=== PATIENT | male | born 1955 | race Caucasian/White ===

== ENCOUNTER → 2018-10-05 12:59 | Outpatient (CLI) | payer BC, SELFPAY ==
--- NOTE | 2018-10-05 13:01 | DI.RAD.S_ITS ---
PROCEDURE: XR LUMBAR SPINE MIN 4V INDICATIONS: low back pain TECHNIQUE: 5 views of the lumbar spine were acquired. COMPARISON: None. FINDINGS: Bones: No fracture or focal osseous destruction. Diffuse facet arthropathy primarily from L4-S1. There is no definite disc space narrowing. Endplate spurring is present. Soft tissues: Overlying bowel gas pattern is normal. No suspicious soft tissue calcifications. Oblique images: No pars defects. IMPRESSION: Mild diffuse lumbar degenerative spurring. Lower lumbar facet arthropathy. Dictated by: Matthew Alvarez M.D. on 10/05/2018 at 15:14 Approved by: Matthew Alvarez M.D. on 10/05/2018 at 15:16
== END ==
PROVIDERS: PCP Student in an Organized Health Care Education/Training Program; Visit Provider Internal Medicine
DX: M54.5 Low back pain (principal); M47.816 Spondylosis without myelopathy or radiculopathy, lumbar region; M46.06 Spinal enthesopathy, lumbar region
CPT/HCPCS: 72110

== ENCOUNTER → 2018-11-13 11:06 | Outpatient (CLI) | payer BC, SELFPAY ==
[2018-11-13 12:05] LABS: Add Manual Diff / Slide Review NO; Basophils Percent Auto 0.5 % (0-2); Eosinophils Percent Auto 3.2 % (2-4); Hematocrit 44.1 % (41-53); Hemoglobin 15.1 g/dL (13.5-17.5); Lymphocytes Percent Auto 28.7 % (25-40); Mean Corpuscular HGB Conc 34.3 % (30-36); Mean Corpuscular Hemoglobin 33.9 PG (26-34); Mean Corpuscular Volume 98.7 fL (80-100); Monocytes Percent Auto 11.7 % (3-14); Neutrophils Absolute Auto 3500 /uL (1500-7000); Neutrophils Percent Auto 55.9 % (50-75); Platelet Count 239 X10^3/uL (150-400); Red Blood Cell Count 4.46 X10^6/uL (4.5-5.9); White Blood Cell Count 6.3 X10^3/uL (4.5-11.0)
[2018-11-13 12:20] LABS: BUN Creatinine Ratio 22.2 (6-22); Blood Urea Nitrogen 20 mg/dL (9-20); Calcium 9.5 mg/dL (8.4-10.2); Carbon Dioxide 26 mmol/L (22-32); Chloride 105 mmol/L (98-107); Cholesterol 189 mg/dL (140-199); Estimated Glomerular Filt Rate > 60.0 mL/min (>60); Glucose 96 mg/dL (80-110); HDL Cholesterol 63 mg/dL (40-60); HEMOLYSIS < 15 (0-50); LDL Cholesterol Calculated 113 mg/dL (<100); Sodium 143 mmol/L (137-145); Triglycerides 64 mg/dL (35-150)
[2018-11-13 12:35] LABS: Vitamin D 25 Hydroxy (D3) 61.9 ng/mL (30.0-100.0)
[2018-11-13 12:49] LABS: Prostate Specific Antigen Scrn 1.09 ng/mL (0.1-4.0)
== END ==
PROVIDERS: PCP Student in an Organized Health Care Education/Training Program; Visit Provider Student in an Organized Health Care Education/Training Program
DX: E55.9 Vitamin D deficiency, unspecified (principal); T39.395A Adverse effect of other nonsteroidal anti-inflammatory drugs [NSAID], initial encounter; Z85.528 Personal history of other malignant neoplasm of kidney; Z12.5 Encounter for screening for malignant neoplasm of prostate; Z13.220 Encounter for screening for lipoid disorders
CPT/HCPCS: 36415; 80048; 80061; 82306; 85025; G0103

== ENCOUNTER 2018-11-16 15:15 | Outpatient (RCR) | payer BC, SELFPAY ==
--- NOTE | 2018-11-02 17:58 | PT.OIE ---
Current Diagnoses Sacrococcygeal disorders, not elsewhere classified (11/02/18) Low back pain (11/02/18) Muscle weakness (generalized) (11/02/18) Provider Visit Care Team Role Provider Type Terry Sy MD Family Provider Physician Primary Care Provider Specialty: Internal Medicine Address: [address] [place] [address] Email: PETER Pavon Attending Provider Advanced Returned Goods Sorter Specialty: Family Practice Address: [address] [place] [address], [id number] Email: [email or web address] Physical Therapy Initial Evaluation PT-OP-A Visit Information Start: 11/02/18 17:32 Freq: Status: Active Protocol: Document 11/02/18 15:15 DCW (Rec: 11/02/18 17:58 DCW [id number]) Out-Patient Physical Therapy Visit Information Visit Information Visit Type Initial Evaluation Visit Start Time 15:15 Visit Stop Time 16:00 Total Visit Minutes 45 Visit Number 1 Number of SUPERVISOR [employer] Visits 0 Evaluation Information Evaluation Date 11/02/18 PT-OP-B Current Condition Start: 11/02/18 17:32 Freq: Status: Active Protocol: Document 11/02/18 15:15 DCW (Rec: 11/02/18 17:58 DCW [id number]) Current Condition History of Current Condition Onset Date Five years Current Complaints Occasional episodes of low back pain History of Current Condition Pt is a 63 year old male presenting with complaints of at least a five year history of occasional episodes of low back pain, which seem to occur with no instigating event, and last for 24 hours, before everything pretty much goes back to normal. 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 Due to the increased severity, pt scheduled an appointment with his physician, and was referred to physical therapy. Pt was given a 5-day course of steroids, which seemed to help, and pt is currently feeling relatively normal at the moment. Pt does note some increased pain when trying to roll in bed. Treatment Goals Patient/Caregiver Goals Pt would like to stop getting these random episodes of back pain. 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 PT-OP-C Subjective Start: 11/02/18 17:32 Freq: Status: Active Protocol: Document 11/02/18 15:15 DCW (Rec: 11/02/18 17:58 DCW [id number]) OP-PT Subjective Patient Comments Patient Reported Progress Improving OP-PT Pain Assessment Pain Assessment Grid Paper Pain Assessment Grid Completed Yes Location Bilateral Lower Back Intensity 6 Scale Used Numeric (1 - 10) Frequency Occasional PT-OP-F Manual Assessment Start: 11/02/18 17:32 Freq: Status: Active Protocol: Document 11/02/18 15:15 DCW (Rec: 11/02/18 17:58 DCW [id number]) Manual Assessments Soft Tissue Assessment Soft Tissue Mobility Assessment No notable soft tissue tone or tenderness Joint Mobility Assessment Joint Mobility Assessment No reports of pain with palpation of L1-5. Increased pain and symptoms with pressure on bilateral SI, L>R SI Hypermobility with P->A mobilization PT-OP-K Range of Motion Start: 11/02/18 17:32 Freq: Status: Active Protocol: Document 11/02/18 15:15 DCW (Rec: 11/02/18 17:58 DCW [id number]) Lumbar Spine Range of Motion Lumbar Spine Active Degrees Testing Position Standing Flexion 42 Extension 23 ROM Limitations Bony Restriction Comments Rotation and Lateral flexion WNL, mild pain with flexion PT-OP-L Special Tests Start: 11/02/18 17:32 Freq: Status: Active Protocol: Document 11/02/18 15:15 DCW (Rec: 11/02/18 17:58 DCW [id number]) Special Tests Lumbar Spine Special Tests Lateral SI compression Test Results Decreased pain Comments Prone bilateral compression ISABEL Test Results Positive Left Straight Leg Raise Test Results Negative Prone Press Up Test Results Negative Slump Test Results Negative Compression Test Results Negative PT-OP-M Strength Start: 11/02/18 17:32 Freq: Status: Active Protocol: Document 11/02/18 15:15 DCW (Rec: 11/02/18 17:58 DCW [id number]) Trunk Strength Trunk Manual Muscle Testing Core Stabilization Immediate loss of posterior pelvic tilt and core contraction with double SLR, 4 /5 Hip Strength Hip Manual Muscle Testing Right Flexion (L2) 5 Normal Extension (S1) 5 Normal Abduction 5 Normal Adduction 5 Normal External Rotation 4+ Good+ Internal Rotation 4+ Good+ Left Flexion (L2) 5 Normal Extension (S1) 5 Normal Abduction 5 Normal Adduction 5 Normal External Rotation 4+ Good+ Internal Rotation 4+ Good+ Knee Strength Knee Manual Muscle Testing Right Flexion (S2) 5 Normal Extension (L3) 5 Normal Left Flexion (S2) 5 Normal Extension (L3) 5 Normal PT-OP-Q Treatments Start: 11/02/18 17:32 Freq: Status: Active Protocol: Document 11/02/18 15:15 DCW (Rec: 11/02/18 17:58 [facility] [id number]) Therapeutic Exercises Supine Exercises PPT /c TrA activation - Air Bicycle Supine Exercise Name PPT /c TrA activation - Air Bicycle PPT /c TrA activation - Alternating SLR Supine Exercise Name PPT /c TrA activation - Alternating SLR Comments 5 hold Sidelying Exercises Reverse Clamshell Sidelying Exercise Name Reverse Clamshell Side bilateral Clamshell Sidelying Exercise Name Clamshell Side bilateral PT-OP-T Assessment and Plan Start: 11/02/18 17:32 Freq: Status: Active Protocol: Document 11/02/18 15:15 DCW (Rec: 11/02/18 17:58 [facility] [id number]) Physical Therapy Assessment Rehab Potential Rehabilitation Potential Good Evaluation Complexity Number of Personal Factors/Comorbidities 0 Number of Body Systems Impaired 1-2 Clinical Presentation at Evaluation Unstable Impairments Impairments Pain ROM Strength Other Impairments SI hypermobility Other Concerns Fall Risk No Barriers to Rehabilitation Infrequency of symptoms Goals Four Impairment Core weakness Short Term Goal (STG) Core MMT to 5/5 STG Duration 12/03/18 Three Impairment Special Tests Tipping Machine Operator Automatic Goal (LTG) ISABEL negative LTG Duration 01/03/19 Two Impairment Work limitation Tipping Machine Operator Automatic Goal (LTG) Pt to not miss work due to back-related pain over a period of one month LTG Duration 01/03/19 One Impairment Pt does not have an appropriate home exercise program Short Term Goal (STG) Pt to be independent and complaint with an appropriate HEP STG Duration 12/03/18 Assessment Summary Assessment Pt presents with signs and symptoms consistent with SI hypermobility and inflammation . Pt does not have any indications at this time of soft tissue injury, however pain is reproduced with pressure at his SI bilaterally , as well as decreased pain with manual SI stabilization. Additionally, pt displays mild core weakness, which may lead to overuse of his back and hips when performing his job. Pt should benefit from skilled therapy focusing on improving stability of the SI joint and improving core and hip rotator strength. If strengthening fails, pt may benefit from an SI belt, however therapist would prefer at this time to limit pt reliance on a belt if able. Physical Therapy Plan Frequency and Duration Frequency of Treatment 2x/Week Duration of Treatment 10 weeks Plan of Care Start Date 11/02/18 Plan of Care End Date 01/11/19 Therapeutic Interventions Therapeutic Interventions Aquatic Therapy Home Exercise Program Joint Mobilizations Manual Therapy Patient/Caregiver Education Self-Care/Home Management Therapeutic Activities Therapeutic Exercises Modalities Cold Pack/Ice Massage Electric Stimulation Hot Packs Ultrasound Next Visit Focus/Plan Next Note Type Treatment Note Next Visit Plan Hip and core strengthening, manual therapy
--- NOTE | 2018-11-02 17:59 | PT.OPPOC ---
Current Diagnoses Sacrococcygeal disorders, not elsewhere classified (11/02/18) Low back pain (11/02/18) Muscle weakness (generalized) (11/02/18) Provider Visit Care Team Role Provider Type Terry Sy MD Family Provider Physician Primary Care Provider Specialty: Internal Medicine Address: [address] [place] [address] Email: PETER Pavon Attending Provider Advanced Underwriter Specialty: Family Practice Address: [address] [place] [address], [facility] Email: [email or web address] Plan Of Care PT-OP-T Assessment and Plan Start: 11/02/18 17:32 Freq: Status: Active Protocol: Document 11/02/18 15:15 DCW (Rec: 11/02/18 17:58 DCW [id number]) Physical Therapy Assessment Rehab Potential Rehabilitation Potential Good Evaluation Complexity Number of Personal Factors/Comorbidities 0 Number of Body Systems Impaired 1-2 Clinical Presentation at Evaluation Unstable Impairments Impairments Pain ROM Strength Other Impairments SI hypermobility Other Concerns Fall Risk No Barriers to Rehabilitation Infrequency of symptoms Goals Four Impairment Core weakness Short Term Goal (STG) Core MMT to 5/5 STG Duration 12/03/18 Three Impairment Special Tests Patient Care Coordinator Goal (LTG) ISABEL negative LTG Duration 01/03/19 Two Impairment Work limitation Patient Care Coordinator Goal (LTG) Pt to not miss work due to back-related pain over a period of one month LTG Duration 01/03/19 One Impairment Pt does not have an appropriate home exercise program Short Term Goal (STG) Pt to be independent and complaint with an appropriate HEP STG Duration 12/03/18 Assessment Summary Assessment Pt presents with signs and symptoms consistent with SI hypermobility and inflammation . Pt does not have any indications at this time of soft tissue injury, however pain is reproduced with pressure at his SI bilaterally , as well as decreased pain with manual SI stabilization. Additionally, pt displays mild core weakness, which may lead to overuse of his back and hips when performing his job. Pt should benefit from skilled therapy focusing on improving stability of the SI joint and improving core and hip rotator strength. If strengthening fails, pt may benefit from an SI belt, however therapist would prefer at this time to limit pt reliance on a belt if able. Physical Therapy Plan Frequency and Duration Frequency of Treatment 2x/Week Duration of Treatment 10 weeks Plan of Care Start Date 11/02/18 Plan of Care End Date 01/11/19 Therapeutic Interventions Therapeutic Interventions Aquatic Therapy Home Exercise Program Joint Mobilizations Manual Therapy Patient/Caregiver Education Self-Care/Home Management Therapeutic Activities Therapeutic Exercises Modalities Cold Pack/Ice Massage Electric Stimulation Hot Packs Ultrasound Next Visit Focus/Plan Next Note Type Treatment Note Next Visit Plan Hip and core strengthening, manual therapy Plan of Care Dates Plan of Care Start Date 11/02/18 Plan of Care End Date 01/11/19 Please Sign and Return: I have reviewed this Plan of Care and certify that the skilled therapy services above are required to meet the patient?s needs. Physician Signature Date Printed Name and Credentials Clinical Instructor Signature Printed Name and Credentials
--- NOTE | 2018-11-06 16:45 | PT.OTN ---
Current Diagnoses Low back pain (11/06/18) Physical Therapy Treatment Note PT-OP-A Visit Information Start: 11/02/18 17:32 Freq: Status: Active Protocol: Document 11/06/18 16:45 RCC (Rec: 11/06/18 17:06 RCC [id number]) Out-Patient Physical Therapy Visit Information Visit Information Visit Type Treatment Note Visit Start Time 16:02 Visit Stop Time 16:45 Total Visit Minutes 43 Visit Number 2 Number of MECHANICAL HANDYMAN Visits 0 Evaluation Information Evaluation Date 11/02/18 PT-OP-B Current Condition Start: 11/02/18 17:32 Freq: Status: Active Protocol: Document 11/02/18 15:15 DCW (Rec: 11/02/18 17:58 DCW [id number]) Current Condition History of Current Condition Onset Date Five years Current Complaints Occasional episodes of low back pain History of Current Condition Pt is a 63 year old male presenting with complaints of at least a five year history of occasional episodes of low back pain, which seem to occur with no instigating event, and last for 24 hours, before everything pretty much goes back to normal. 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 Due to the increased severity, pt scheduled an appointment with his physician, and was referred to physical therapy. Pt was given a 5-day course of steroids, which seemed to help, and pt is currently feeling relatively normal at the moment. Pt does note some increased pain when trying to roll in bed. Treatment Goals Patient/Caregiver Goals Pt would like to stop getting these random episodes of back pain. 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 PT-OP-C Subjective Start: 11/02/18 17:32 Freq: Status: Active Protocol: Document 11/06/18 16:45 RCC (Rec: 11/06/18 17:06 RCC [email or web address]) OP-PT Subjective Patient Comments Patient Comments Pt has noticed that he was not engaging his core at all at work, and was surprised about how tiring it could be engaging your core the entire shift. PT-OP-F Manual Assessment Start: 11/02/18 17:32 Freq: Status: Active Protocol: Document 11/02/18 15:15 DCW (Rec: 11/02/18 17:58 DCW [id number]) Manual Assessments Soft Tissue Assessment Soft Tissue Mobility Assessment No notable soft tissue tone or tenderness Joint Mobility Assessment Joint Mobility Assessment No reports of pain with palpation of L1-5. Increased pain and symptoms with pressure on bilateral SI, L>R SI Hypermobility with P->A mobilization PT-OP-K Range of Motion Start: 11/02/18 17:32 Freq: Status: Active Protocol: Document 11/02/18 15:15 DCW (Rec: 11/02/18 17:58 DCW [id number]) Lumbar Spine Range of Motion Lumbar Spine Active Degrees Testing Position Standing Flexion 42 Extension 23 ROM Limitations Bony Restriction Comments Rotation and Lateral flexion WNL, mild pain with flexion PT-OP-L Special Tests Start: 11/02/18 17:32 Freq: Status: Active Protocol: Document 11/02/18 15:15 DCW (Rec: 11/02/18 17:58 DCW [id number]) Special Tests Lumbar Spine Special Tests Lateral SI compression Test Results Decreased pain Comments Prone bilateral compression ISABEL Test Results Positive Left Straight Leg Raise Test Results Negative Prone Press Up Test Results Negative Slump Test Results Negative Compression Test Results Negative PT-OP-M Strength Start: 11/02/18 17:32 Freq: Status: Active Protocol: Document 11/02/18 15:15 DCW (Rec: 11/02/18 17:58 DCW [id number]) Trunk Strength Trunk Manual Muscle Testing Core Stabilization Immediate loss of posterior pelvic tilt and core contraction with double SLR, 4 /5 Hip Strength Hip Manual Muscle Testing Right Flexion (L2) 5 Normal Extension (S1) 5 Normal Abduction 5 Normal Adduction 5 Normal External Rotation 4+ Good+ Internal Rotation 4+ Good+ Left Flexion (L2) 5 Normal Extension (S1) 5 Normal Abduction 5 Normal Adduction 5 Normal External Rotation 4+ Good+ Internal Rotation 4+ Good+ Knee Strength Knee Manual Muscle Testing Right Flexion (S2) 5 Normal Extension (L3) 5 Normal Left Flexion (S2) 5 Normal Extension (L3) 5 Normal PT-OP-Q Treatments Start: 11/02/18 17:32 Freq: Status: Active Protocol: Document 11/06/18 16:45 RCC (Rec: 11/06/18 17:06 RCC [id number]) Therapeutic Exercises Supine Exercises TrA activation Side bilateral Reps/Minutes 10 with 5 sec hold Comments tactile cuing Prone Exercises hip extension Prone Exercise Name hip extension Side bilateral Reps/Minutes 10 each Other Exercises Quadruped alt. LE lift Other Exercise Name quadruped alternating LE lift Side bilateral Reps/Minutes 10 each Therapeutic Activity Therapeutic Activity body mechanics- lifting Name body mechanics- discussion, demonstration, pt performed with supervision Reps/Minutes 26 min Comments lifting techniques ground<-> waist, turning while lifting objects, lifting waist to overhead; also discussed and performed pt's warm up prior to working- discussed dynamic vs. static stretching Manual Therapy Treatment Manual Techniques MET Type to correct R posterior ilial rotation PT-OP-T Assessment and Plan Start: 11/02/18 17:32 Freq: Status: Active Protocol: Document 11/06/18 16:45 [facility] (Rec: 11/06/18 17:06 [facility] [id number]) Physical Therapy Assessment Assessment Summary Assessment Pt required increased time to discuss, be educated on, demonstrate, and to perform transverse abdominal activation, posterior pelvic tilting with lifting techniques, as well as different conditions including floor<->waist, waist<->waist level, waist<->above shoulder level lifting. Pt had a good grasp of reasoning for and how to engage the transverse abdominal for work and every day related tasks by the end of session. Physical Therapy Plan Frequency and Duration Frequency of Treatment 2x/Week Duration of Treatment 10 weeks Plan of Care Start Date 11/02/18 Plan of Care End Date 01/11/19 Next Visit Focus/Plan Next Note Type Treatment Note Next Visit Plan continue to advance core stability with HEP, assess tolerance and understanding from this session.
--- NOTE | 2018-11-09 15:52 | PT.OTN ---
Current Diagnoses Low back pain (11/09/18) Physical Therapy Treatment Note PT-OP-A Visit Information Start: 11/02/18 17:32 Freq: Status: Active Protocol: Document 11/09/18 15:15 DCW (Rec: 11/09/18 15:52 DCW [id number]) Out-Patient Physical Therapy Visit Information Visit Information Visit Type Treatment Note Visit Note Pt requested ending appointment 15 minutes early due to conflicting appointment times. Visit Start Time 15:15 Visit Stop Time 15:45 Total Visit Minutes 30 Visit Number 3 Number of INTERNAL MEDICINE PHYSICIAN Visits 0 Evaluation Information Evaluation Date 11/02/18 PT-OP-B Current Condition Start: 11/02/18 17:32 Freq: Status: Active Protocol: Document 11/02/18 15:15 DCW (Rec: 11/02/18 17:58 DCW [id number]) Current Condition History of Current Condition Onset Date Five years Current Complaints Occasional episodes of low back pain History of Current Condition Pt is a 63 year old male presenting with complaints of at least a five year history of occasional episodes of low back pain, which seem to occur with no instigating event, and last for 24 hours, before everything pretty much goes back to normal. 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 Due to the increased severity, pt scheduled an appointment with his physician, and was referred to physical therapy. Pt was given a 5-day course of steroids, which seemed to help, and pt is currently feeling relatively normal at the moment. Pt does note some increased pain when trying to roll in bed. Treatment Goals Patient/Caregiver Goals Pt would like to stop getting these random episodes of back pain. 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 PT-OP-C Subjective Start: 11/02/18 17:32 Freq: Status: Active Protocol: Document 11/09/18 15:15 DCW (Rec: 11/09/18 15:52 DCW [id number]) OP-PT Subjective Patient Comments Patient Comments Pt reports he has still been doing well back at work, but noticing stiffness when first getting up in the morning. Notes that is takes 5-10 minutes to really get it worked out. PT-OP-F Manual Assessment Start: 11/02/18 17:32 Freq: Status: Active Protocol: Document 11/02/18 15:15 DCW (Rec: 11/02/18 17:58 DCW [id number]) Manual Assessments Soft Tissue Assessment Soft Tissue Mobility Assessment No notable soft tissue tone or tenderness Joint Mobility Assessment Joint Mobility Assessment No reports of pain with palpation of L1-5. Increased pain and symptoms with pressure on bilateral SI, L>R SI Hypermobility with P->A mobilization PT-OP-K Range of Motion Start: 11/02/18 17:32 Freq: Status: Active Protocol: Document 11/02/18 15:15 DCW (Rec: 11/02/18 17:58 DCW [id number]) Lumbar Spine Range of Motion Lumbar Spine Active Degrees Testing Position Standing Flexion 42 Extension 23 ROM Limitations Bony Restriction Comments Rotation and Lateral flexion WNL, mild pain with flexion PT-OP-L Special Tests Start: 11/02/18 17:32 Freq: Status: Active Protocol: Document 11/02/18 15:15 DCW (Rec: 11/02/18 17:58 DCW [id number]) Special Tests Lumbar Spine Special Tests Lateral SI compression Test Results Decreased pain Comments Prone bilateral compression ISABEL Test Results Positive Left Straight Leg Raise Test Results Negative Prone Press Up Test Results Negative Slump Test Results Negative Compression Test Results Negative PT-OP-M Strength Start: 11/02/18 17:32 Freq: Status: Active Protocol: Document 11/02/18 15:15 DCW (Rec: 11/02/18 17:58 DCW [id number]) Trunk Strength Trunk Manual Muscle Testing Core Stabilization Immediate loss of posterior pelvic tilt and core contraction with double SLR, 4 /5 Hip Strength Hip Manual Muscle Testing Right Flexion (L2) 5 Normal Extension (S1) 5 Normal Abduction 5 Normal Adduction 5 Normal External Rotation 4+ Good+ Internal Rotation 4+ Good+ Left Flexion (L2) 5 Normal Extension (S1) 5 Normal Abduction 5 Normal Adduction 5 Normal External Rotation 4+ Good+ Internal Rotation 4+ Good+ Knee Strength Knee Manual Muscle Testing Right Flexion (S2) 5 Normal Extension (L3) 5 Normal Left Flexion (S2) 5 Normal Extension (L3) 5 Normal PT-OP-Q Treatments Start: 11/02/18 17:32 Freq: Status: Active Protocol: Document 12/10/18 15:15 DCW (Rec: 11/09/18 15:52 DCW [id number]) Gym Equipment Shuttle Recovery Plyo Hopping Details Plyometric Hopping Resistance 75# Therapeutic Ball Bridging /c HS curls Exercise Details Bridging /c Hamstring Curls Ball Size/Color Red - 55 cm Body Position Supine T-ball Bridging Exercise Details Bridging /c feet on T-ball Ball Size/Color Red - 55 cm Body Position Supine Therapeutic Exercises Other Exercises Resisted Fwd/Retro Ambulation Other Exercise Name Resisted Fwd/Retro Ambulation Resistance Yellow Equipment Used T-band Resisted Side-stepping Other Exercise Name Resisted Side-stepping Resistance Yellow Equipment Used T-band Quadruped alt. LE lift Other Exercise Name quadruped alternating LE/UE lift Side bilateral Reps/Minutes 2x10 PT-OP-T Assessment and Plan Start: 11/02/18 17:32 Freq: Status: Active Protocol: Document 11/09/18 15:15 DCW (Rec: 11/09/18 15:52 DCW [id number]) Physical Therapy Assessment Impairments Impairments Pain ROM Strength Other Impairments SI hypermobility Goals Four Impairment Core weakness Short Term Goal (STG) Core MMT to 5/5 STG Duration 12/03/18 Three Impairment Special Tests [facility] Goal (LTG) ISABEL negative LTG Duration 01/03/19 Two Impairment Work limitation Press Officer Goal (LTG) Pt to not miss work due to back-related pain over a period of one month LTG Duration 01/03/19 One Impairment Pt does not have an appropriate home exercise program Short Term Goal (STG) Pt to be independent and complaint with an appropriate HEP STG Duration 12/03/18 Assessment Summary Assessment Pt appears to be better with core stabilization at work, reporting less pain even with increased work days due to holiday season hours. Physical Therapy Plan Frequency and Duration Frequency of Treatment 2x/Week Duration of Treatment 10 weeks Plan of Care Start Date 11/02/18 Plan of Care End Date 01/11/19 Therapeutic Interventions Therapeutic Interventions Aquatic Therapy Home Exercise Program Joint Mobilizations Manual Therapy Patient/Caregiver Education Self-Care/Home Management Therapeutic Activities Therapeutic Exercises Modalities Cold Pack/Ice Massage Electric Stimulation Hot Packs Ultrasound Next Visit Focus/Plan Next Note Type Treatment Note Next Visit Plan Hip and core strengthening, manual therapy
--- NOTE | 2018-11-12 17:30 | PT.OTN ---
Current Diagnoses Low back pain (11/12/18) Physical Therapy Treatment Note PT-OP-A Visit Information Start: 11/02/18 17:32 Freq: Status: Active Protocol: Document 11/12/18 17:30 RCC (Rec: 11/12/18 17:44 RCC [email or web address]) Out-Patient Physical Therapy Visit Information Visit Information Visit Type Treatment Note Visit Start Time 16:46 Visit Stop Time 17:30 Total Visit Minutes 44 Visit Number 4 Number of COMPOSITION BOARD PRESS OPERATOR Visits 0 Evaluation Information Evaluation Date 11/02/18 PT-OP-B Current Condition Start: 11/02/18 17:32 Freq: Status: Active Protocol: Document 11/02/18 15:15 DCW (Rec: 11/02/18 17:58 DCW [id number]) Current Condition History of Current Condition Onset Date Five years Current Complaints Occasional episodes of low back pain History of Current Condition Pt is a 63 year old male presenting with complaints of at least a five year history of occasional episodes of low back pain, which seem to occur with no instigating event, and last for 24 hours, before everything pretty much goes back to normal. 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 Due to the increased severity, pt scheduled an appointment with his physician, and was referred to physical therapy. Pt was given a 5-day course of steroids, which seemed to help, and pt is currently feeling relatively normal at the moment. Pt does note some increased pain when trying to roll in bed. Treatment Goals Patient/Caregiver Goals Pt would like to stop getting these random episodes of back pain. 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 PT-OP-C Subjective Start: 11/02/18 17:32 Freq: Status: Active Protocol: Document 11/12/18 17:30 RCC (Rec: 11/12/18 17:44 RCC [email or web address]) OP-PT Subjective Patient Comments Patient Comments Pt is doing his HEP and notes that he has not had that sharp type pain in a while, but still stiff in the a.m. PT-OP-F Manual Assessment Start: 11/02/18 17:32 Freq: Status: Active Protocol: Document 11/12/18 17:30 RCC (Rec: 11/12/18 17:44 RCC [email or web address]) Manual Assessments Other Manual Assessments Other Manual Assessments R SI joint hypomobility PT-OP-K Range of Motion Start: 11/02/18 17:32 Freq: Status: Active Protocol: Document 11/02/18 15:15 DCW (Rec: 11/02/18 17:58 DCW [id number]) Lumbar Spine Range of Motion Lumbar Spine Active Degrees Testing Position Standing Flexion 42 Extension 23 ROM Limitations Bony Restriction Comments Rotation and Lateral flexion WNL, mild pain with flexion PT-OP-L Special Tests Start: 11/02/18 17:32 Freq: Status: Active Protocol: Document 11/02/18 15:15 DCW (Rec: 11/02/18 17:58 DCW [id number]) Special Tests Lumbar Spine Special Tests Lateral SI compression Test Results Decreased pain Comments Prone bilateral compression ISABEL Test Results Positive Left Straight Leg Raise Test Results Negative Prone Press Up Test Results Negative Slump Test Results Negative Compression Test Results Negative PT-OP-M Strength Start: 11/02/18 17:32 Freq: Status: Active Protocol: Document 11/02/18 15:15 DCW (Rec: 11/02/18 17:58 DCW [id number]) Trunk Strength Trunk Manual Muscle Testing Core Stabilization Immediate loss of posterior pelvic tilt and core contraction with double SLR, 4 /5 Hip Strength Hip Manual Muscle Testing Right Flexion (L2) 5 Normal Extension (S1) 5 Normal Abduction 5 Normal Adduction 5 Normal External Rotation 4+ Good+ Internal Rotation 4+ Good+ Left Flexion (L2) 5 Normal Extension (S1) 5 Normal Abduction 5 Normal Adduction 5 Normal External Rotation 4+ Good+ Internal Rotation 4+ Good+ Knee Strength Knee Manual Muscle Testing Right Flexion (S2) 5 Normal Extension (L3) 5 Normal Left Flexion (S2) 5 Normal Extension (L3) 5 Normal PT-OP-Q Treatments Start: 11/02/18 17:32 Freq: Status: Active Protocol: Document 11/12/18 17:30 RCC (Rec: 11/12/18 17:44 RCC [email or web address]) Therapeutic Exercises Supine Exercises bridging Side bilateral Reps/Minutes 10 bilateral pushing Supine Exercise Name B hip and knee flexion- pushing vs own hands Side bilateral PPT Supine Exercise Name posterior pelvic tilt training Side bilateral Reps/Minutes 10 TrA activation Side bilateral Reps/Minutes 10 with 5 sec hold Comments tactile cuing Prone Exercises plank Prone Exercise Name front, lateral planks Side bilateral Reps/Minutes 30 sec each Other Exercises Quadruped alt. LE lift Other Exercise Name quadruped alternating LE lift Side bilateral Reps/Minutes 2x10 Comments unable to stabilize with alt UE/LE combined Manual Therapy Treatment Soft Tissue Mobilization R gluteals Mobilization Type Rolling Strumming Intensity/Depth Moderate Body Position Prone Joint Mobilizations R SI joint Joint R SI joint Direction caudal Grade III Body Position Prone PT-OP-T Assessment and Plan Start: 11/02/18 17:32 Freq: Status: Active Protocol: Document 11/12/18 17:30 RCC (Rec: 11/12/18 17:44 RCC [email or web address]) Physical Therapy Assessment Assessment Summary Assessment Pt tolerated strengthening without c/o pain, but evident core instability with pushing exercise and planks. Pt is progressing well with work tolerance, potentially d/c in 1-2 weeks. Physical Therapy Plan Frequency and Duration Frequency of Treatment 2x/Week Duration of Treatment 10 weeks Plan of Care Start Date 11/02/18 Plan of Care End Date 01/11/19 Next Visit Focus/Plan Next Note Type Treatment Note Next Visit Plan advance core stability as tolerated.
--- NOTE | 2018-11-16 16:44 | PT.OTN ---
Current Diagnoses Low back pain (11/16/18) Physical Therapy Treatment Note PT-OP-A Visit Information Start: 11/02/18 17:32 Freq: Status: Active Protocol: Document 11/16/18 15:56 EA (Rec: 11/16/18 15:58 EA [id number]) Out-Patient Physical Therapy Visit Information Visit Information Visit Type Treatment Note Visit Start Time 15:15 Visit Stop Time 16:00 Total Visit Minutes 45 Visit Number 4 PT-OP-B Current Condition Start: 11/02/18 17:32 Freq: Status: Active Protocol: Document 11/02/18 15:15 DCW (Rec: 11/02/18 17:58 DCW [id number]) Current Condition History of Current Condition Onset Date Five years Current Complaints Occasional episodes of low back pain History of Current Condition Pt is a 63 year old male presenting with complaints of at least a five year history of occasional episodes of low back pain, which seem to occur with no instigating event, and last for 24 hours, before everything pretty much goes back to normal. 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 Due to the increased severity, pt scheduled an appointment with his physician, and was referred to physical therapy. Pt was given a 5-day course of steroids, which seemed to help, and pt is currently feeling relatively normal at the moment. Pt does note some increased pain when trying to roll in bed. Treatment Goals Patient/Caregiver Goals Pt would like to stop getting these random episodes of back pain. 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 PT-OP-C Subjective Start: 11/02/18 17:32 Freq: Status: Active Protocol: Document 11/16/18 15:56 EA (Rec: 11/16/18 15:58 EA [id number]) OP-PT Subjective Patient Comments Patient Comments Pt reports went to his doctor and is diagnosed wtih lumbar arthritis; overall he feels that he is improvng. PT-OP-F Manual Assessment Start: 11/02/18 17:32 Freq: Status: Active Protocol: Document 11/12/18 17:30 RCC (Rec: 11/12/18 17:44 RCC [email or web address]) Manual Assessments Other Manual Assessments Other Manual Assessments R SI joint hypomobility PT-OP-K Range of Motion Start: 11/02/18 17:32 Freq: Status: Active Protocol: Document 11/02/18 15:15 DCW (Rec: 11/02/18 17:58 DCW [id number]) Lumbar Spine Range of Motion Lumbar Spine Active Degrees Testing Position Standing Flexion 42 Extension 23 ROM Limitations Bony Restriction Comments Rotation and Lateral flexion WNL, mild pain with flexion PT-OP-L Special Tests Start: 11/02/18 17:32 Freq: Status: Active Protocol: Document 11/02/18 15:15 DCW (Rec: 11/02/18 17:58 DCW [id number]) Special Tests Lumbar Spine Special Tests Lateral SI compression Test Results Decreased pain Comments Prone bilateral compression ISABEL Test Results Positive Left Straight Leg Raise Test Results Negative Prone Press Up Test Results Negative Slump Test Results Negative Compression Test Results Negative PT-OP-M Strength Start: 11/02/18 17:32 Freq: Status: Active Protocol: Document 11/02/18 15:15 DCW (Rec: 11/02/18 17:58 DCW [id number]) Trunk Strength Trunk Manual Muscle Testing Core Stabilization Immediate loss of posterior pelvic tilt and core contraction with double SLR, 4 /5 Hip Strength Hip Manual Muscle Testing Right Flexion (L2) 5 Normal Extension (S1) 5 Normal Abduction 5 Normal Adduction 5 Normal External Rotation 4+ Good+ Internal Rotation 4+ Good+ Left Flexion (L2) 5 Normal Extension (S1) 5 Normal Abduction 5 Normal Adduction 5 Normal External Rotation 4+ Good+ Internal Rotation 4+ Good+ Knee Strength Knee Manual Muscle Testing Right Flexion (S2) 5 Normal Extension (L3) 5 Normal Left Flexion (S2) 5 Normal Extension (L3) 5 Normal PT-OP-Q Treatments Start: 11/02/18 17:32 Freq: Status: Active Protocol: Document 11/16/18 15:09 EA (Rec: 11/16/18 15:56 EA [id number]) Cardio Equipment Recumbent Stepper (Sci-Fit) Duration (Minutes) 5 Resistance 3 Other 60-70rpm Gym Equipment Therapeutic Ball T-ball Bridging Exercise Details Bridging /c feet on T-ball Ball Size/Color Red - 55 cm Body Position Supine Therapeutic Exercises Supine Exercises bilateral pushing Supine Exercise Name PPT marching PPT Supine Exercise Name posterior pelvic tilt training Side bilateral Reps/Minutes 10 Prone Exercises plank Prone Exercise Name front planks: alt side steps mountain climber, leg extension Side bilateral Reps/Minutes 30 sec each Other Exercises 2 Other Exercise Name Cable trunk rot Resistance 10# Reps/Minutes x 10 reps each side 1 Other Exercise Name Cable sit to stand row Resistance 2 plates Resisted Fwd/Retro Ambulation Other Exercise Name PPT wall squat Reps/Minutes x 5 T-ball throws x 5 reps Quadruped alt. LE lift Other Exercise Name quadruped alternating LE lift Side bilateral Reps/Minutes 2x10 Manual Therapy Treatment Soft Tissue Mobilization R gluteals Mobilization Type Rolling Strumming Intensity/Depth Moderate Body Position Prone Joint Mobilizations R SI joint Joint R SI joint Direction caudal Grade III Body Position Prone PT-OP-R Modalities Start: 11/02/18 17:32 Freq: Status: Active Protocol: Document 11/16/18 15:58 EA (Rec: 11/16/18 15:59 EA [id number]) Hot Pack/Cold Pack Treatment Hot Pack Location paralumbars Patient Position Prone Comments pillow under stomach PT-OP-T Assessment and Plan Start: 11/02/18 17:32 Freq: Status: Active Protocol: Document 11/16/18 15:09 EA (Rec: 11/16/18 15:56 EA [id number]) Physical Therapy Assessment Assessment Summary Assessment Tolerated treatment; patient Performed therex well with good form. Physical Therapy Plan Next Visit Focus/Plan Next Note Type Treatment Note Next Visit Plan advance core stability as tolerated.
--- NOTE | 2019-01-19 10:58 | PT.OPDS ---
Current Diagnoses Low back pain (11/16/18) Provider Visit Care Team Role Provider Type Terry Sy MD Family Provider Physician Primary Care Provider Specialty: Internal Medicine Address: [address] [place] [address], [id number] Email: PETER Pavon Attending Provider Advanced Insurance Verify Rep Specialty: Family Practice Address: [address] [place] [address], [facility], [address] Email: [email or web address] Visit Number Visit Number 4 Discharge Summary PT-OP-B Current Condition Start: 11/02/18 17:32 Freq: Status: Active Protocol: Document 11/02/18 15:15 DCW (Rec: 11/02/18 17:58 DCW [id number]) Current Condition History of Current Condition Onset Date Five years Current Complaints Occasional episodes of low back pain History of Current Condition Pt is a 63 year old male presenting with complaints of at least a five year history of occasional episodes of low back pain, which seem to occur with no instigating event, and last for 24 hours, before everything pretty much goes back to normal. 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 Due to the increased severity, pt scheduled an appointment with his physician, and was referred to physical therapy. Pt was given a 5-day course of steroids, which seemed to help, and pt is currently feeling relatively normal at the moment. Pt does note some increased pain when trying to roll in bed. Treatment Goals Patient/Caregiver Goals Pt would like to stop getting these random episodes of back pain. 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 PT-OP-C Subjective Start: 11/02/18 17:32 Freq: Status: Active Protocol: Document 11/16/18 15:56 EA (Rec: 11/16/18 15:58 EA [id number]) OP-PT Subjective Patient Comments Patient Comments Pt reports went to his doctor and is diagnosed wtih lumbar arthritis; overall he feels that he is improvng. PT-OP-F Manual Assessment Start: 11/02/18 17:32 Freq: Status: Active Protocol: Document 11/12/18 17:30 RCC (Rec: 11/12/18 17:44 RCC [id number]) Manual Assessments Other Manual Assessments Other Manual Assessments R SI joint hypomobility PT-OP-K Range of Motion Start: 11/02/18 17:32 Freq: Status: Active Protocol: Document 11/02/18 15:15 DCW (Rec: 11/02/18 17:58 DCW [id number]) Lumbar Spine Range of Motion Lumbar Spine Active Degrees Testing Position Standing Flexion 42 Extension 23 ROM Limitations Bony Restriction Comments Rotation and Lateral flexion WNL, mild pain with flexion PT-OP-L Special Tests Start: 11/02/18 17:32 Freq: Status: Active Protocol: Document 11/02/18 15:15 DCW (Rec: 11/02/18 17:58 DCW [id number]) Special Tests Lumbar Spine Special Tests Lateral SI compression Test Results Decreased pain Comments Prone bilateral compression ISABEL Test Results Positive Left Straight Leg Raise Test Results Negative Prone Press Up Test Results Negative Slump Test Results Negative Compression Test Results Negative PT-OP-M Strength Start: 11/02/18 17:32 Freq: Status: Active Protocol: Document 11/02/18 15:15 DCW (Rec: 11/02/18 17:58 DCW [id number]) Trunk Strength Trunk Manual Muscle Testing Core Stabilization Immediate loss of posterior pelvic tilt and core contraction with double SLR, 4 /5 Hip Strength Hip Manual Muscle Testing Right Flexion (L2) 5 Normal Extension (S1) 5 Normal Abduction 5 Normal Adduction 5 Normal External Rotation 4+ Good+ Internal Rotation 4+ Good+ Left Flexion (L2) 5 Normal Extension (S1) 5 Normal Abduction 5 Normal Adduction 5 Normal External Rotation 4+ Good+ Internal Rotation 4+ Good+ Knee Strength Knee Manual Muscle Testing Right Flexion (S2) 5 Normal Extension (L3) 5 Normal Left Flexion (S2) 5 Normal Extension (L3) 5 Normal PT-OP-T Assessment and Plan Start: 11/02/18 17:32 Freq: Status: Active Protocol: Document 01/19/19 10:56 DCW (Rec: 01/19/19 10:58 DCW [id number]) Physical Therapy Assessment Goals Four Impairment Core weakness Short Term Goal (STG) Core MMT to 5/5 STG Duration 12/03/18 Three Impairment Special Tests Marriage Counselor Minister Goal (LTG) ISABEL negative LTG Duration 01/03/19 Two Impairment Work limitation [facility] Goal (LTG) Pt to not miss work due to back-related pain over a period of one month LTG Duration 01/03/19 One Impairment Pt does not have an appropriate home exercise program Short Term Goal (STG) Pt to be independent and complaint with an appropriate HEP STG Duration 12/03/18 Assessment Summary Assessment Pt canceled his last scheduled appointment, and did not schedule any more. Pt has now not been seen in more than two months, and his POC has . Pt will be discharged from skilled PT at this time, and will require a new referral in order to return. Physical Therapy Plan Discharge Physical Therapy Discharge Reasons No Longer Attending PT Next Visit Focus/Plan Next Note Type Discharge Summary
== END 2019-01-25 15:39 ==
LOC: PHYS 15:15
PROVIDERS: Family Provider Student in an Organized Health Care Education/Training Program; PCP Student in an Organized Health Care Education/Training Program; Visit Provider Internal Medicine
DX: M54.5 Low back pain (principal)
CPT/HCPCS: 97110; 97140; 97161; 97530

== ENCOUNTER → 2019-02-24 11:58 | Outpatient (CLI) | payer BC, SELFPAY ==
--- NOTE | 2019-02-24 12:01 | DI.RAD.S_ITS ---
PROCEDURE: XR CHEST 2V INDICATIONS: Cough and shortness of breath TECHNIQUE: 2 views of the chest were acquired. COMPARISON: , , CHEST 2 VIEW, 03/31/2017, 15:28. FINDINGS: Surgical changes and devices: None. Lungs and pleura: Lungs are clear. No pleural effusions or pneumothorax. Mediastinum: Mediastinal contours are normal. Heart size is normal. Bones and chest wall: No suspicious bony abnormalities. Soft tissues appear unremarkable. IMPRESSION: Negative chest. No acute cardiopulmonary process is evident. Dictated by: Jacobo Monet M.D. on 02/24/2019 at 12:00 Approved by: Jacobo Monet M.D. on 02/24/2019 at 12:01
== END ==
PROVIDERS: Family Provider Student in an Organized Health Care Education/Training Program; PCP Student in an Organized Health Care Education/Training Program; Visit Provider Student in an Organized Health Care Education/Training Program
DX: R05 Cough (principal); R06.02 Shortness of breath
CPT/HCPCS: 71046

== ENCOUNTER → 2019-05-28 10:10 | Outpatient (CLI) | payer BC, SELFPAY ==
--- NOTE | 2019-05-28 | DI.US.S_ITS ---
PROCEDURE: US RENAL COMPLETE INDICATIONS: HISTORY OF KIDNEY CANCER TECHNIQUE: Real-time scanning was performed of the kidneys and bladder, with image documentation. COMPARISON: [facility], , RENAL COMPLETE, 03/03/2017, 13:34. [facility], , RENAL COMPLETE, 12/29/2015, 10:05. FINDINGS: Kidneys: The left kidney is normal in size at 14.9 cm craniocaudad. Right kidney is surgically resected; left renal cortical thickness is 2.1 cm. Renal cortical echotexture is normal. No hydronephrosis or nephrolithiasis. No suspicious solid mass lesions. Bladder: Pre-void bladder volume is 227 mL. Post-void residual is 0 mL. Pre-void images demonstrate no intraluminal masses or stones. On pre-void images, the the left ureteral jet is noted with color Doppler interrogation. (Of note, ureteral jets may not be detectable in up to 25% of cases due to insufficient differences in specific gravity between ureteral and bladder urine). Miscellaneous: No free pelvic fluid. IMPRESSION: Prior right nephrectomy, normal appearing left kidney. Normal bladder function. Dictated by: George Fuentes M.D. on 05/28/2019 at 13:43 Approved by: George Fuentes M.D. on 05/28/2019 at 13:53
[2019-05-28 11:41] LABS: Alanine Aminotransferase 29 IU/L (21-72); Albumin 4.3 g/dL (3.5-5.0); Albumin Globulin Ratio 1.8 (1.0-2.8); Alkaline Phosphatase 78 U/L (38-126); Aspartate Aminotransferase 27 IU/L (17-59); BUN Creatinine Ratio 17.5 (6-22); Bilirubin Total 0.5 mg/dL (0.2-1.3); Blood Urea Nitrogen 14 mg/dL (9-20); Calcium 9.4 mg/dL (8.4-10.2); Carbon Dioxide 26 mmol/L (22-32); Chloride 104 mmol/L (98-107); Estimated Glomerular Filt Rate > 60.0 mL/min (>60); Globulin 2.4 g/dL (1.7-4.1); Glucose 84 mg/dL (80-110); HEMOLYSIS < 15 (0-50); Potassium 4.6 mmol/L (3.4-5.1); Sodium 139 mmol/L (137-145); Total Protein 6.7 g/dL (6.3-8.2)
[2019-05-28 12:11] LABS: Prostate Specific Antigen 0.931 ng/mL (0.10-4.00)
== END ==
PROVIDERS: Family Provider Student in an Organized Health Care Education/Training Program; PCP Student in an Organized Health Care Education/Training Program; Visit Provider Urology
DX: Z85.528 Personal history of other malignant neoplasm of kidney (principal)
CPT/HCPCS: 36415; 76770; 80053; 84153

== ENCOUNTER → 2019-10-15 15:47 | Outpatient (CLI) | payer BC, SELFPAY ==
[2019-10-15 18:41] LABS: TSH w/ Reflex to FT4 0.84 uIU/mL (0.47-4.68)
== END ==
PROVIDERS: Family Provider Student in an Organized Health Care Education/Training Program; PCP Student in an Organized Health Care Education/Training Program; Visit Provider Student in an Organized Health Care Education/Training Program
DX: F52.32 Male orgasmic disorder (principal); R68.82 Decreased libido
CPT/HCPCS: 36415; 84403; 84443

== ENCOUNTER → 2020-11-18 15:35 | Outpatient (CLI) | payer BC, SELFPAY ==
[2020-11-18 16:04] LABS: COVID19 -Nasal RAPID Negative (Negative)
== END ==
PROVIDERS: Family Provider Student in an Organized Health Care Education/Training Program; PCP Student in an Organized Health Care Education/Training Program; Referring Provider Physician Assistant; Visit Provider Physician Assistant
DX: Z20.828 Contact with and (suspected) exposure to other viral communicable diseases (principal); R09.81 Nasal congestion
CPT/HCPCS: 87635

== ENCOUNTER → 2022-05-16 14:19 | Outpatient (CLI) | payer BC, SELFPAY ==
[2022-05-16 15:02] LABS: Appearance Urine UA CLEAR; Bilirubin Urine UA NEGATIVE (NEGATIVE); Color Urine UA YELLOW; Glucose Urine UA NEGATIVE (Negative); Ketones Urine UA TRACE (NEGATIVE); Leukocyte Esterase Urine UA TRACE (NEGATIVE); Nitrite Urine UA NEGATIVE (Negative); Occult Blood Urine UA 1+ (Negative); Protein Urine UA TRACE (Negative); Specific Gravity Urine UA 1.025 (1.000-1.035); pH Urine UA 5.5 (4.5-8.0)
[2022-05-16 15:12] LABS: Amorphous Sediment Urine 1+; Bacteria Urine Moderate (10-30); Culture Indicated Urine Specimen Cultured; Mucus Urine 1+ (Negative); RBC Urine 1-5/HPF (0-5/HPF); WBC Urine 30-100/HPF (0-5/HPF)
== END ==
PROVIDERS: Family Provider Student in an Organized Health Care Education/Training Program; PCP Student in an Organized Health Care Education/Training Program; Referring Provider Student in an Organized Health Care Education/Training Program; Visit Provider Student in an Organized Health Care Education/Training Program
DX: R10.2 Pelvic and perineal pain (principal); R30.9 Painful micturition, unspecified
CPT/HCPCS: 81001; 87086

== ENCOUNTER → 2023-01-14 15:42 | Outpatient (CLI) | payer BC, SELFPAY ==
[2023-01-14 17:48] LABS: Cholesterol 203 mg/dL (140-199); HDL Cholesterol 55 mg/dL (40-60); LDL Cholesterol Calculated 133 mg/dL (<100); Triglycerides 75 mg/dL (35-150)
[2023-01-16 16:29] LABS: Hep C Virus Ab w/Reflex Quant NEGATIVE s/c (NEGATIVE)
== END ==
PROVIDERS: Family Provider Student in an Organized Health Care Education/Training Program; PCP Student in an Organized Health Care Education/Training Program; Referring Provider Student in an Organized Health Care Education/Training Program; Visit Provider Student in an Organized Health Care Education/Training Program
DX: Z11.59 Encounter for screening for other viral diseases (principal); Z13.220 Encounter for screening for lipoid disorders
CPT/HCPCS: 36415; 80061; 86803

== ENCOUNTER → 2023-01-20 | Outpatient (CLI) | payer BC, SELFPAY ==
--- NOTE | 2023-01-20 15:39 | DI.US.S_ITS ---
PROCEDURE: US ABD AORTA ANEURYSM SCREEN INDICATIONS: PERSONAL HISTORY OF NICOTINE DEPENDENCY TECHNIQUE: Real time scanning was performed of the aorta and iliac arteries, with image documentation. COMPARISON: None. FINDINGS: Aorta: Proximal aortic diameter measures 2.0 cm. Mid-aorta measures 1.8 cm. Distal aortic diameter is 1.7 cm. Vascular calcifications indicate atherosclerosis. Iliac arteries: Right common iliac artery measures 1.2 cm. Left common iliac artery measures 1.2 cm. IMPRESSION: No abdominal aortic or proximal common iliac artery aneurysm. Dictated by: Himanshu Nair [facility] Interpreted: Oneli Cornejo MD on 01/20/2023 at 16:03 Transcribed by: MED on 01/20/2023 at 16:04 Approved by: Oneil Cornejo M.D. on 02/03/2023 at 15:52
== END ==
LOC: US 15:39
PROVIDERS: Family Provider Student in an Organized Health Care Education/Training Program; PCP Student in an Organized Health Care Education/Training Program; Referring Provider Student in an Organized Health Care Education/Training Program; Visit Provider Student in an Organized Health Care Education/Training Program
DX: Z13.6 Encounter for screening for cardiovascular disorders (principal); Z87.891 Personal history of nicotine dependence
CPT/HCPCS: 76706

== ENCOUNTER 2023-03-11 12:13 | Day surgery (SDC) | payer BC, SELFPAY ==
--- NOTE | 2023-03-11 | PATH_ITS ---
[facility] Accession Number: [id number] No. of containers..01 Tissue . 01 Material submitted: . rectum - RECTAL POLYP X4 . 01 Diagnosis: Rectum, Polyp x4, Biopsy: Tubular adenoma in one of four fragments. Hyperplastic polyp, three fragments. MRV 03/13/2023 1454 Local . 01 Electronically signed: . Arely Johnson MD, Pathologist NPI- [id number] . 01 Gross description: . RECTAL POLYP X4: Received in formalin are multiple fragment(s) of harrington, soft tissue measuring 0.7 x 0.7 x 0.1 cm in aggregate submitted entirely in 1 cassette(s) /CPE 03/12/2023 0647 Local . 01 Pathologist provided ICD-10: D12.8 . 01 CPT . 046390 Specimen Comment: A courtesy copy of this report has been sent to [phone] Performed at: 01 [facility] [address] [place] [address] [address] [facility], [place], [place] [id number] MD Brian Denis MD Phone: [phone]
[2023-03-11] MEDS: LACTATED RINGERS 1,000 ML 200 ML IV (12:44)
[2023-03-11 12:45] VITALS: BP 123/81; PULSE 72; RESP 20; TEMP 36.6; O2SAT 98; BMI 24.7
--- NOTE | 2023-03-11 13:36 | P.HP_ITS ---
History of Present Illness History of Present Illness Date Patient Seen: 03/11/23 Time Patient Seen: 13:36 Chief complaint: Colonoscopy Narrative: The patient presents for colorectal screening. History of sigmoidoscopy but no prior colonoscopy. No personal or family history of colon cancer. On further history denies any recent gastrointestinal symptoms. No nausea, vomiting, abdominal pain, loss of appetite, unexplained weight loss, change in bowel habits, or blood per rectum. [facility] Medical History (Updated 01/15/23 @ 04:19 by Terry Sy MD) Congenital cavus foot Hammertoe Insomnia (10/08/11) Renal cancer Social History household members: spouse Smoking Status: Former smoker Meds Home Medications and Allergies Home Medications Medication Instructions Recorded Confirmed Type MULTIVITAMIN (One Daily 1 tab PO QDAY ##0 04/30/12 01/08/23 History Multivitamin) sildenafil 40 mg PO PRN PRN Erectile 03/11/23 03/11/23 History Dysfunction Allergies Allergy/AdvReac Type Severity Reaction Status Date / Time No Known Drug Allergies Allergy Verified 01/08/23 16:30 Exam Vital Signs (past 8 hours): - 03/11/23 12:45 Temperature 97.9 F Pulse Rate 72 Respiratory Rate 20 Blood Pressure 123/81 Pulse Oximetry 98 Oxygen Delivery Method Room Air Oxygen Delivery Method Room Air Narrative Exam Narrative: General adult male alert oriented no acute distress Abdomen soft nontender nondistended Assessment & Plan Assessment & Plan narrative: The patient requires colorectal screening and colonoscopy is recommended. Technical details were discussed. Risks, benefits, alternatives explained. Risks including but not limited to myocardial infarction, aspiration, bleeding, pain, missed lesion, incomplete examination, need for further radiographic studies, colonic perforation, and need for major abdominal surgery were discussed. All questions were answered to their satisfaction, and they are in agreement with this plan.
--- NOTE | 2023-03-11 13:37 | PM.OP.COLON ---
Operative Date/Time/Diagnoses Date of procedure: 03/11/23 Time of procedure: 13:37 Pre-op diagnosis: Colorectal screening Post-op diagnosis: other (Colonic polyps x4) Procedure & Clinicians Study performed: Colonoscopy and polypectomy Same procedure as scheduled: Yes Indications: Colorectal screening Surgeon: Dc Galdamez Procedure Notes Procedure in detail: The history and physical was performed/updated and the patient is ASA class is 2. The procedure was discussed in detail with the patient. Potential risks complications including infection, bleeding, missed diagnosis, perforation, need for surgery, and were explained. Their questions were answered and informed consent was obtained. Patient was brought to the procedure room and placed standard monitoring equipment. The patient's vital signs were monitored continuously throughout the entire procedure. Prior to starting time-out was performed. The patient was placed in the left lateral recumbent position. Procedural sedation was administered by anesthesia. Examination began with a thorough inspection of the perianal area there was no evidence of fissures, fistulae, external hemorrhoids or cutaneous malignancy. The colonoscopy scope was then placed into the anal canal and was advanced to the cecum, which was identified by the ileocecal valve, the appendiceal orifice and the confluence of the taenia. The scope was then slowly withdrawn examining colon thoroughly in all directions, irrigating it of any residual stool. The rectum was notable for 4 polyps of approximately 3 mm each. These were removed with a combination of biopsy forceps and cold snare. The remainder of the colon was unremarkable The patient tolerated the procedure well. They will be discharged once criteria are met. The prep was of good/excellent quality. The withdrawl time was 8 minutes. Specimen(s): other (Rectal polyps x4) Impression: Colonic polyps x4 Post-procedure Plan for aftercare: Follow-up is dependent on pathology findings Disposition: same day surgery
[2023-03-11 14:33] VITALS: BP 88/62; PULSE 62; RESP 12; TEMP 36.2; O2SAT 93
[2023-03-11 14:35] VITALS: BP 94/63; PULSE 63; RESP 13; O2SAT 94
[2023-03-11 14:40] VITALS: BP 97/66; PULSE 63; RESP 14; TEMP 36.5; O2SAT 94
[2023-03-11 14:43] VITALS: BP 98/69; PULSE 65; RESP 17; O2SAT 96
--- NOTE | 2023-03-11 14:49 | SUR.PHASEII ---
Spouse updated regarding patient status. Ride unavailable for another hour. Patient condition stable. PO intake provided. Call light within reach.
== END 2023-03-11 16:18 | disposition home or self-care (01) ==
PROVIDERS: Family Provider Student in an Organized Health Care Education/Training Program; PCP Student in an Organized Health Care Education/Training Program; Referring Provider Surgery; Visit Provider Surgery
PROC: 0DJD8ZZ Inspection of Lower Intestinal Tract, Via Natural or Artificial Opening Endoscopic (ICD-10-PCS; CPT 45378; principal; 2023-03-11 13:15)
DX: Z12.11 Encounter for screening for malignant neoplasm of colon (principal); D12.8 Benign neoplasm of rectum
CPT/HCPCS: 45385; 45380; J2704; J3010

== ENCOUNTER → 2024-04-20 09:28 | Outpatient (CLI) | payer MEDICARE, OTHER, SELFPAY ==
[2024-04-20 12:46] LABS: Alanine Aminotransferase 16 IU/L (<50); Albumin Globulin Ratio 1.8 (1.0-2.8); Alkaline Phosphatase 73 U/L (38-126); Aspartate Aminotransferase 24 IU/L (17-59); BUN Creatinine Ratio 17.7 (6-22); Bilirubin Total 0.6 mg/dL (0.2-1.3); Blood Urea Nitrogen 14 mg/dL (9-20); Calcium 8.6 mg/dL (8.4-10.2); Carbon Dioxide 27 mmol/L (22-32); Chloride 108 mmol/L (98-107); Estimated Glomerular Filt Rate > 60 mL/min (>60); Globulin 2.2 g/dL (1.7-4.1); Glucose 96 mg/dL (80-110); HDL Cholesterol 53 mg/dL (40-60); HEMOLYSIS < 15 (0-50); Potassium 4.7 mmol/L (3.4-5.1); Sodium 139 mmol/L (137-145); Total Protein 6.2 g/dL (6.3-8.2); Triglycerides 76 mg/dL (35-150)
[2024-04-20 13:12] LABS: Prostate Specific Antigen Scrn 1.23 ng/mL (0.1-4.0)
[2024-04-20 15:28] LABS: Cholesterol 199 mg/dL (140-199); LDL Cholesterol Calculated 131 mg/dL (<100)
== END ==
PROVIDERS: Family Provider Student in an Organized Health Care Education/Training Program; PCP Family Medicine; Referring Provider Family Medicine; Visit Provider Family Medicine
DX: E78.00 Pure hypercholesterolemia, unspecified (principal); Z12.5 Encounter for screening for malignant neoplasm of prostate; Z00.00 Encounter for general adult medical examination without abnormal findings
CPT/HCPCS: 36415; 80053; 80061; G0103

== ENCOUNTER → 2024-06-07 08:00 | Outpatient (CLI) | payer MEDICARE, OTHER, SELFPAY ==
--- NOTE | 2024-06-07 08:01 | DI.ECHO.S_ITS ---
[facility]+ [facility] : : [id number] : [place] : : [id number] : : Phone: [phone] Echocardiogram Report + + :Name: IVANIA COHEN Study Date: 06/07/2024 Height: 75 in : :Hospital ReadingLocation: Weight: 207 lb : : Gender: Male BSA: 2.2 m2 : :: 1955 Age: 68 yrs BP: 142/96 mmHg: :Reason For Study: HEART MURMUR : :Ordering Physician: TRISTON CALLAHANPerformed By: Sonali Dougherty : :Referring: TRISTON CALLAHAN : + + Interpretation Summary There is mild concentric left ventricular hypertrophy. The ejection fraction is estimated to be 60-65%. Diastolic function could not be accurately assessed due to unobtainable data. The left atrium is mildly dilated. The right ventricle is normal in size and function. There is mild mitral regurgitation. There is severe aortic stenosis. There is mild aortic regurgitation. Pulmonary artery pressures cannot be estimated because of the lack of a measurable TR jet velocity but the IVC suggests a CVP of around 8 mmHg. Result discussed with ordering physician. Procedure: A two-dimensional transthoracic echocardiogram with color flow and Doppler was performed. The study quality was technically adequate. There is no prior echocardiogram noted for this patient. The patient was in sinus bradycardia with heart rates between 53-67 bpm during the exam. Left Ventricle: The left ventricle is normal in size. There is mild concentric left ventricular hypertrophy. The ejection fraction is estimated to be 60-65%. Diastolic function could not be accurately assessed due to unobtainable data. Right Ventricle: The right ventricle is normal in size and function. Atria: The left atrium is mildly dilated. Right atrial size is normal. There is no Doppler evidence for an interatrial shunt. Mitral Valve: The mitral valve is normal. There is mild mitral regurgitation. Aortic Valve: The aortic valve is moderately calcified. There is severe aortic stenosis. The peak aortic velocity is 4.2 m/sec. The aortic valve mean gradient is 44 mmHg. The calculated aortic valve area is 0.84 cm2. There is mild aortic regurgitation. Tricuspid Valve: The tricuspid valve is normal in structure and function. There is trace tricuspid regurgitation. Pulmonary artery pressures cannot be estimated because of the lack of a measurable TR jet velocity but the IVC suggests a CVP of around 8 mmHg. Pulmonic Valve: The pulmonic valve leaflets are thin and pliable; valve motion is normal. There is mild pulmonic regurgitation. Great Vessels: The aortic root is normal size. The ascending aorta is mildly enlarged. The IVC is dilated (diameter is greater than 2.1 cm) yet it collapses greater than 50% with a sniff. This suggests a right atrial pressure of 8 mm Hg. Pericardium/ Pleura There is no pericardial effusion. There is no pleural effusion. MMode/2D Measurements & Calculations LVIDd: 4.8 cm LVOT diam: 2.2 cm LVIDs: 3.1 cm Ao root diam: 3.4 cm FS: 36.2 % asc Aorta Diam: 4.0 cm IVSd: 1.1 cm Ao Arch Diam (Prox Trans): 3.7 cm LVPWd: 1.1 cm LV sy. diameter/BSA (cm/m^2): 2.2 LV sys. diameter/BSA (cm/m^2): 1.4 LA A2 area: 26.0 cm2 RA long axis: 5.5 cm LA A4 area: 22.0 cm2 RA area: 21.0 cm2 LA length (vol): 6.1 cm RA vol: 68.7 ml LA vol: 80.2 ml RA : 30.9 ml/m2 LA vol index: 36.0 ml/m2 IVC diam: 2.6 cm RVD1 (basal): 4.0 cm RVD2 (mid): 3.5 cm TAPSE: 2.4 cm Doppler Measurements & Calculations Ao V2 max: 418.3 cm/sec LVOT Max [place]: 92.4 cm/sec Ao V2 mean: 315.3 cm/sec LV V1 max P.4 mmHg Ao max P.8 mmHg LV V1 VTI: 22.4 cm Ao mean P.4 mmHg MILAGRO(I,D): 0.84 cm2 Ao V2 VTI: 101.7 cm MIL[place]RO(V,D): 0.84 cm2 sev ratio: 0.22 MILAGRO indexed to BSA (cm^2/m^2): 0.38 MV E max [place]: 55.5 cm/sec PA V2 max: 97.7 cm/sec MV A max [place]: 65.0 cm/sec PA V2 mean: 70.3 cm/sec MV E/A: 0.85 PA mean P.2 mmHg Med Peak E' [place]: 5.3 cm/sec PA pr(Accel): 27.6 mmHg E/E' med: 10.5 Lat Peak E' [place]: 6.0 cm/sec E/E' lat: 9.3 E/e' average: 9.9 MV dec time: 0.30 sec SV(LVOT): 85.4 ml Reading Physician:03:14 PM
== END ==
LOC: ECHO 08:01
PROVIDERS: Family Provider Student in an Organized Health Care Education/Training Program; PCP Family Medicine; Referring Provider Family Medicine; Visit Provider Family Medicine
DX: I08.0 Rheumatic disorders of both mitral and aortic valves (principal); E78.00 Pure hypercholesterolemia, unspecified; R01.1 Cardiac murmur, unspecified
CPT/HCPCS: 93306

== ENCOUNTER 2025-02-13 14:10 | Emergency (ER) | payer MEDICARE, BC, SELFPAY ==
[2025-02-13] VITALS (8 sets, daily range): BP systolic 140–177; BP diastolic 83–93; PULSE 59–69; RESP 12–29; TEMP 36.8; O2SAT 96–99; BMI 25.1
--- NOTE | 2025-02-13 14:29 | DI.MRI.S_ITS ---
PROCEDURE: MR ORBITS FACE NECK WO CON INDICATIONS: trauma, CT scan not available TECHNIQUE: Noncontrast sagittal T1 spin echo, axial FLAIR, axial gradient echo, axial diffusion and ADC acquired through the brain. Coronal STIR, thin-slice axial T1 spin echo through the orbits. After the administration of contrast, thin-slice axial and coronal T1 spin echo with fat saturation through the orbits, axial and coronal and sagittal T1 spin echo with fat saturation through the brain. COMPARISON: None. FINDINGS: Image quality: Excellent. Orbits: Globes are symmetrical. The optic nerves are normal in size, without abnormal signal or enhancement. No retrobulbar masses or fat abnormalities. The extra-ocular muscles are normal and symmetric in appearance. Lacrimal glands are normal. Optic chiasm is normal. Periorbital soft tissues appear normal. CSF spaces: Ventricles are normal in size and shape. Basal cisterns are patent. No extra-axial fluid collections. Brain: No intracranial bleeds or mass effects. No abnormal intracranial enhancement. Raymundo-white matter interface is intact. Pituitary gland appears normal, without sellar or suprasellar masses. Brainstem appears normal. Normal intravascular flow voids are present. Skull and face: Calvarial marrow is normal in signal. Orbital leigh are intact. No obvious facial bone fracture or edema. Included portion of cervical spine shows no acute fracture or dislocation. No marrow edema. Degenerative disc disease throughout mid to lower cervical spine is seen. Sinuses: Mucosal thickening in bilateral maxillary sinus and ethmoid sinus is seen slightly worse on the left side. Bilateral mastoid air cells are well aerated. IMPRESSION: 1. No acute orbital wall fracture. Bilateral orbital globes are intact. No retrobulbar hematoma. 2. Mild bilateral ethmoid and maxillary sinusitis. No gross facial bone or nasal bone fracture. Bilateral mastoid air cells are well aerated. 3. Degenerative disc disease in mid to lower cervical spine. No acute cervical spine fracture or dislocation. Dictated by: Ron Enciso M.D. on 02/13/2025 at 16:53 Approved by: Ron Enciso M.D. on 02/13/2025 at 16:56
--- NOTE | 2025-02-13 14:29 | DI.MRI.S_ITS ---
PROCEDURE: MR HEAD/BRAIN WO CON INDICATIONS: trauma, on plavix, CT not available TECHNIQUE: Non-contrast axial T1 spin echo, axial T2 fast spin echo, sagittal and axial FLAIR, coronal T2 fast spin echo, axial gradient echo, axial diffusion and ADC through the brain. COMPARISON: [facility], CT, CT HEAD WITHOUT CONTRAST, 10/15/2024, 14:05. FINDINGS: Image quality: Excellent. CSF spaces: Ventricles appear symmetric in size and shape. Basal cisterns are patent. No extra-axial fluid collections. Brain: No intracranial bleeds or mass effects. There is cerebral volume loss for age. There are periventricular and deep white matter chronic small vessel ischemic changes. Brainstem appears normal. Diffusion-weighted images show no acute infarct. No chronic ischemic insults. Normal intravascular flow voids are present. Skull and face: Calvarial bone marrow is normal in signal. Orbits are normal. Sinuses: Bilateral mastoids are clear. Mild mucosal thickening in bilateral maxillary and ethmoid sinuses are seen. IMPRESSION: 1. No acute infarction. No acute intracranial bleed, midline shift or mass effect. 2. Mild age related volume loss. 3. Mild sinus disease in bilateral ethmoid sinuses and maxillary sinuses. Dictated by: Ron Enciso M.D. on 02/13/2025 at 16:48 Approved by: Ron Enciso M.D. on 02/13/2025 at 16:51
--- NOTE | 2025-02-13 14:33 | PC.NURSE ---
This RN called modified trauma for patient at 14:18 due to fall with facial trauma on plavix and 81mg aspirin with significant facial bruising.
--- NOTE | 2025-02-13 15:15 | ED.GENADULT ---
HPI - General Adult General Chief complaint: Trauma Stated complaint: Fall/face Injury Time Seen by Provider: 02/13/25 14:29 Source: patient Mode of arrival: Ambulatory History of Present Illness HPI narrative: 69-year-old gentleman on Plavix and aspirin after a TAVR procedure with no identified coronary disease, hyperlipidemia hypertension was running in a parking lot yesterday fell landing on his face has moderate bruising around the orbits and the maxilla. His convinced him to come to the ER for imaging today given his Plavix and aspirin dual platelet therapy. He has not complaining of headache, facial pain neck pain. He has a small abrasion on the left knee. He was able to get up after the fall and run back to the car without any difficulties. Related Data Home Medications Medication Instructions Recorded Confirmed MULTIVITAMIN (One Daily 1 tab PO QDAY ##0 04/30/12 10/25/24 Multivitamin) amoxicillin 500 mg capsule 1,000 mg PO BID PRN dental work 10/25/24 10/25/24 aspirin 81 mg tablet,delayed 81 mg PO DAILY 10/25/24 10/25/24 release (Adult Aspirin Regimen) atorvastatin 10 mg tablet 10 mg PO DAILY 10/25/24 10/25/24 clopidogrel 75 mg tablet 75 mg PO DAILY 10/25/24 10/25/24 Allergies Allergy/AdvReac Type Severity Reaction Status Date / Time No Known Drug Allergies Allergy Verified 10/25/24 16:39 Review of Systems Review of Systems Narrative: Pertinent positive and negative findings as per HPI Patient History Medical History PFO (patent foramen ovale) TIA (transient ischemic attack) Severe aortic stenosis Encounter for subsequent annual wellness visit (AWV) in Medicare patient Heart murmur Congenital cavus foot [place] Renal cancer Insomnia (10/08/11) Surgical History S/P TAVR (transcatheter aortic valve replacement) Social History household members: spouse Smoking Status: Former smoker Smoking Status: Former smoker alcohol intake frequency: a few times a month Exam Initial Vital Signs Initial Vital Signs: Vital Signs Temperature 98.2 F 02/13/25 14:15 Pulse Rate 65 02/13/25 14:15 Respiratory Rate 20 02/13/25 14:15 Blood Pressure 177/85 H 02/13/25 14:15 Pulse Oximetry 99 02/13/25 14:15 Oxygen Delivery Method Room Air 02/13/25 14:15 General: Healthy appearing, in no acute distress. Able to give a complete and coherent history. Well-nourished well-developed HEENT: Moist mucous membranes, normal sclera with reactive pupils, bruising over the mid face including bridge of the nose eyelids maxilla bilaterally. No tenderness to palpation along the orbits. Extraocular eye movements are full and unrestricted, no dentition abnormalities Neck: No midline cervical spine tenderness Respiratory: Full and symmetrical air movement Cardiac: Regular rate and rhythm Abdomen: Soft, nontender, no flank pain Skin: Warm and dry, minor abrasion to his left knee Neurologic: Grossly neurologically intact with no obvious asymmetries or abnormalities Extremities: No bony trauma, no lower extremity edema Psych: Cooperative, appropriate insight and affect Course Orders Ordered: ED Orders 02/13/25 14:29 MR head/brain wo con Stat MR orbits face neck wo con Stat Vital Signs Vital signs: Vital Signs - 8 hr 02/13/25 14:15 02/13/25 14:26 02/13/25 14:26 Temperature 98.2 F Pulse Rate 65 69 Respiratory Rate 20 20 Blood Pressure 177/85 H 157/93 H Pulse Oximetry 99 99 Oxygen Delivery Method Room Air 02/13/25 14:30 02/13/25 14:30 02/13/25 15:00 Temperature Pulse Rate 66 Respiratory Rate 18 Blood Pressure 143/85 H 144/88 H Pulse Oximetry 98 Oxygen Delivery Method 02/13/25 15:00 02/13/25 16:21 02/13/25 16:22 Temperature Pulse Rate 65 67 Respiratory Rate 20 29 H Blood Pressure 140/83 Pulse Oximetry 97 96 Oxygen Delivery Method 02/13/25 16:22 02/13/25 16:30 02/13/25 16:30 Temperature Pulse Rate 61 59 L Respiratory Rate 19 12 Blood Pressure 141/86 H Pulse Oximetry 98 96 Oxygen Delivery Method 02/13/25 17:00 02/13/25 17:00 Temperature Pulse Rate 67 Respiratory Rate 19 Blood Pressure 143/86 H Pulse Oximetry 97 Oxygen Delivery Method Room Air Medical Decision Making Imaging Data MR face: My Impression: MR ordered CT scan is unavailable at this time Radiologist's Impression: PROCEDURE: MR ORBITS FACE NECK WO CON INDICATIONS: trauma, CT scan not available TECHNIQUE: Noncontrast sagittal T1 spin echo, axial FLAIR, axial gradient echo, axial diffusion and ADC acquired through the brain. Coronal STIR, thin-slice axial T1 spin echo through the orbits. After the administration of contrast, thin-slice axial and coronal T1 spin echo with fat saturation through the orbits, axial and coronal and sagittal T1 spin echo with fat saturation through the brain. COMPARISON: None. FINDINGS: Image quality: Excellent. Orbits: Globes are symmetrical. The optic nerves are normal in size, without abnormal signal or enhancement. No retrobulbar masses or fat abnormalities. The extra-ocular muscles are normal and symmetric in appearance. Lacrimal glands are normal. Optic chiasm is normal. Periorbital soft tissues appear normal. CSF spaces: Ventricles are normal in size and shape. Basal cisterns are patent. No extra-axial fluid collections. Brain: No intracranial bleeds or mass effects. No abnormal intracranial enhancement. Raymundo-white matter interface is intact. Pituitary gland appears normal, without sellar or suprasellar masses. Brainstem appears normal. Normal intravascular flow voids are present. Skull and face: Calvarial marrow is normal in signal. Orbital leigh are intact. No obvious facial bone fracture or edema. Included portion of cervical spine shows no acute fracture or dislocation. No marrow edema. Degenerative disc disease throughout mid to lower cervical spine is seen. Sinuses: Mucosal thickening in bilateral maxillary sinus and ethmoid sinus is seen slightly worse on the left side. Bilateral mastoid air cells are well aerated. IMPRESSION: 1. No acute orbital wall fracture. Bilateral orbital globes are intact. No retrobulbar hematoma. 2. Mild bilateral ethmoid and maxillary sinusitis. No gross facial bone or nasal bone fracture. Bilateral mastoid air cells are well aerated. 3. Degenerative disc disease in mid to lower cervical spine. No acute cervical spine fracture or dislocation. Dictated by: Ron Enciso M.D. on 02/13/2025 at 16:53 MR brain: My Impression: MR ordered a CT scan is not immediately available Radiologist's Impression: PROCEDURE: MR HEAD/BRAIN WO CON INDICATIONS: trauma, on plavix, CT not available TECHNIQUE: Non-contrast axial T1 spin echo, axial T2 fast spin echo, sagittal and axial FLAIR, coronal T2 fast spin echo, axial gradient echo, axial diffusion and ADC through the brain. COMPARISON: [facility], CT, CT HEAD WITHOUT CONTRAST, 10/15/2024, 14:05. FINDINGS: Image quality: Excellent. CSF spaces: Ventricles appear symmetric in size and shape. Basal cisterns are patent. No extra-axial fluid collections. Brain: No intracranial bleeds or mass effects. There is cerebral volume loss for age. There are periventricular and deep white matter chronic small vessel ischemic changes. Brainstem appears normal. Diffusion-weighted images show no acute infarct. No chronic ischemic insults. Normal intravascular flow voids are present. Skull and face: Calvarial bone marrow is normal in signal. Orbits are normal. Sinuses: Bilateral mastoids are clear. Mild mucosal thickening in bilateral maxillary and ethmoid sinuses are seen. IMPRESSION: 1. No acute infarction. No acute intracranial bleed, midline shift or mass effect. 2. Mild age related volume loss. 3. Mild sinus disease in bilateral ethmoid sinuses and maxillary sinuses. Dictated by: Ron Enciso M.D. on 02/13/2025 at 16:48 MDM Narrative Medical decision making narrative: CC: Fall onto his face on Plavix and aspirin Complicating co-morbidities: Anticoagulated, hypertension hyperlipidemia Data collected from: patient. Differential considered: Nasal fracture, orbital fractures, maxilla fractures, intracranial hemorrhage Exam documented above, pertinent findings include: The midface bruising is becoming more apparent however the remainder of exam is fairly benign no obvious tenderness around the orbits or restricted movement of ocular muscles.// Imaging studies independently reviewed: CT scanner is currently unavailable. MR of the face and brain are ordered given the trauma on Plavix Discussion: 69-year-old gentleman on Plavix and aspirin fell landing on his face, MRIs done as CT scan was unavailable do not show acute fractures, orbital injury, intracranial hemorrhage or cervical spine injury. Findings reviewed with the patient his . He declines need for any pain medication, reviewed anticipated recovery given that contusions. Questions are answered he is safe for discharge Discharge Plan Departure Patient Disposition: Home Clinical Impression: Anticoagulated Fall Qualifiers: Encounter type: initial encounter Qualified Code(s): W19.XXXA - Unspecified fall, initial encounter Contusion of face Qualifiers: Encounter type: initial encounter Qualified Code(s): S00.83XA - Contusion of other part of head, initial encounter Abrasion of knee Qualifiers: Encounter type: initial encounter Laterality: left Qualified Code(s): S80.212A - Abrasion, left knee, initial encounter Instructions: DI for Eye Contusion Activity Restrictions/Additional Instructions: Thank you for coming in today The bruises through the middle of your face are likely going to get bigger and we will take up to 2 weeks to completely resolve The MRI of your facial bones, brain and cervical spine were all very reassuring. There was no broken bones, no soft tissue injury, no bleeding in her around your brain and your cervical spine has some mild arthritis but no acute fractures Ice to the bruised areas maybe helpful. Tylenol as needed for pain control. If you find that things are getting worse please do return to the ER Prescriptions: No Action MULTIVITAMIN (One Daily Multivitamin) 1 tab PO QDAY Qty: 0 atorvastatin 10 mg tablet 10 mg PO DAILY clopidogrel 75 mg tablet 75 mg PO DAILY aspirin [Adult Aspirin Regimen] 81 mg tablet,delayed release (DR/EC) 81 mg PO DAILY amoxicillin 500 mg capsule 1,000 mg PO BID PRN (Reason: dental work) Referrals: Miracle Argueta DO [Primary Care Provider] - Stand Alone Forms: Patient Portal/API/Survey
== END 2025-02-13 17:31 | disposition home or self-care (01) ==
PROVIDERS: Emergency Provider Emergency Medicine; PCP Family Medicine
DX: S00.12XA Contusion of left eyelid and periocular area, initial encounter (principal); S00.11XA Contusion of right eyelid and periocular area, initial encounter; S80.212A Abrasion, left knee, initial encounter; W18.30XA Fall on same level, unspecified, initial encounter; Y93.02 Activity, running; Y92.481 Parking lot as the place of occurrence of the external cause; Z95.2 Presence of prosthetic heart valve; Z79.02 Long term (current) use of antithrombotics/antiplatelets; Z79.82 Long term (current) use of aspirin
CPT/HCPCS: 36415; 70540; 70551; 99284

== ENCOUNTER 2025-05-19 19:18 | Emergency (ER) | payer MEDICARE, BC, SELFPAY ==
[2025-05-19 19:42] VITALS: BP 163/81; PULSE 85; RESP 16; TEMP 36.9; O2SAT 97; BMI 24.2
--- NOTE | 2025-05-19 20:33 | ED_ITS ---
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 States that he does have an appointment with his urologist but due to persistent symptoms decided come into the ED for further evaluation treatment. Denies any other symptoms Related Data Home Medications ?Medication ?Instructions ?Recorded ?Confirmed MULTIVITAMIN (One Daily 1 tab PO QDAY ##0 04/30/12 0 05/05/25 Multivitamin) amoxicillin 500 mg capsule 1,000 mg PO BID PRN dental work 10/25/24 05/05/25 aspirin 81 mg tablet,delayed 81 mg PO DAILY 10/25/24 0 05/05/25 release (Adult Aspirin Regimen) atorvastatin 10 mg tablet 10 mg PO DAILY 10/25/2404/24 Previous Rx's ?Medication ?Instructions ?Recorded cephalexin 500 mg capsule 500 mg PO Q8H 7 days #21 cap s 05/19/25 tamsulosin 0.4 mg capsule (Flomax) 0.4 mg PO DAILY 1 w twenty-nine palms #7 caps 05/19/25 Allergies Allergy/AdvReac Type Severity Reaction Status Date / Time No Known Drug Allergies Allergy Verified 05/19/25 19:48 Review of Systems Review of Systems Narrative: General: Denies fever, chills, weight loss HEENT: Denies headache, eye drainage, eye irritation, head trauma, sore throat, voice change Cardiovascular: Denies any chest pain, palpitations, tachycardia Respiratory: Denies any shortness of breath, cough, wheeze, stridor GI/: Positive urinary frequency, dysuria, hesitancy Denies any abdominal pain, nausea, vomiting, diarrhea, bright red blood per rectum, melanotic stools,urinary retention, hematuria MSK: Denies any joint pain, muscle pains, swelling Skin: Denies any rashes, lesions, discoloration Neuro: Denies any headache, lightheadedness, dizziness, fainting, weakness Psych: Denies SI/HI Patient History Medical History PFO (patent foramen ovale) TIA (transient ischemic attack) Severe aortic stenosis Encounter for subsequent annual wellness visit (AWV) in Medicare patient Heart murmur Congenital cavus foot [place] Renal cancer Insomnia (10/08/11) Surgical History S/P TAVR (transcatheter aortic valve replacement) Social History household members: spouse Smoking Status: Former smoker alcohol intake frequency: a few times a month Exam Narrative Exam Narrative: General: Cooperative, well-developed, not in acute distress HEENT: Normocephalic, atraumatic, PERRLA, normal sclera, eyelids normal Neck: Active full range of motion, atraumatic Chest: Normal to inspection, negative crepitus, no overlying erythema ecchymosis Respiratory: Normal respiratory effort, not in acute respiratory distress, clear to auscultation bilaterally negative cough, wheeze, tachypnea, rhonchi, rales Cardiology: Regular rate rhythm negative gallop, murmur, rubs GI/: No tenderness to palpation, soft, non rigid, normal to inspection, exam deferred MSK: Full active range of motion in all 4 extremities, atraumatic, no tenderness to palpation of any bony prominences Skin: No rashes or lesions noted Neuro: Alert awake oriented x3, moves all 4 extremities spontaneously, cranial nerves intact, able to answer all questions appropriately follows commands appropriately Psych: Cooperative, negative suicidal or homicidal ideations Initial Vital Signs Initial Vital Signs: Vital Signs Temperature 98.4 F 05/19/25 19:42 Pulse Rate 85 05/19/25 19:42 Respiratory Rate 16 05/19/25 19:42 Blood Pressure 163/81 H 05/19/25 19:42 Pulse Oximetry 97 05/19/25 19:42 Oxygen Delivery Method Room Air 05/19/25 19:42 Course Orders Ordered: Ondansetron HCl (Ondansetron 4 Mg/2 Ml Inj) 4 mg IV NOW PRN PRN Reason: Nausea And Vomiting Ondansetron HCl (Ondansetron 4 Mg Odt) 4 mg PO NOW PRN PRN Reason: Nausea And Vomiting Vital Signs Vital signs: Vital Signs - 8 hr 05/19/25 19:42 Temperature 98.4 F Pulse Rate 85 Respiratory Rate 16 Blood Pressure 163/81 H Pulse Oximetry 97 Oxygen Delivery Method Room Air MDM - Male Genitourinary Differential Diagnosis Differential diagnosis: Likely urinary tract infection and other (BPH) Lab Data Labs: Urine Dip Bedside Urine Glucose Negative Bedside Urine Bilirubin - Negative Bedside Urine Ketone +/- 5 Urine Specific [place] 1.005 Bedside Urine Occult Blood - Negative Bedside Urine pH 6.0 Bedside Urine Protein - Negative Bedside Urine Urobilinogen - Negative Bedside Urine Nitrite - Negative Bedside Urine Leukocytes - Negative Esterase MDM Narrative Medical decision making narrative: 69-year-old male with a past medical history of hyperlipidemia 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 Urinalysis not consistent with urinary tract infection however given patient's symptomology we will treat with oral antibiotics we will also give short course of Flomax for possible BPH. He was instructed follow up with his urologist and primary care doctor he was given strict return p recautions he verbalized understanding of this and agrees with being discharged home with outpatient follow up Discharge Plan Departure Patient Disposition: Home Clinical Impression: Dysuria Instructions: DI for Dysuria -- Adult Activity Restrictions/Additional Instructions: Please follow up with your urologist and your primary care doctor Please read the discharge instructions sheet carefully and bring all papers to all doctor follow-up visits, as it may contain information that your doctor may want to see. Disease processes change and evolve, if your symptoms worsen or if you develop any new symptoms that are concerning to you please return for evaluation. Your evaluation today does not show any evidence of any life- threatening/serious illnesses requiring admission to the hospital or surgery. Please follow-up with your doctor for re-evaluation in approximately 1 day. Seek immediate medical attention for any worrisome symptoms. *If you do not have a primary care provider please contact the [facility] Resource line at [phone]. They will ask some questions about your medical history and help get you set up with a doctor in the community. Prescriptions: New cephalexin 500 mg capsule 500 mg PO Q8H 7 Days Qty: 21 0RF tamsulosin [Flomax] 0.4 mg capsule 0.4 mg PO DAILY 7 Days Qty: 7 0RF No Action MULTIVITAMIN (One Daily Multivitamin) 1 tab PO QDAY Qty: 0 atorvastatin 10 mg tablet 10 mg PO DAILY aspirin [Adult Aspirin Regimen] 81 mg tablet,delayed release (DR/EC) 81 mg PO DAILY amoxicillin 500 mg capsule 1,000 mg PO BID PRN (Reason: dental work) Referrals: Miracle Argueta DO [Primary Care Provider, Family Practice] Stand Alone Forms: Patient Portal/API
[2025-05-19 21:16] VITALS: BP 147/87; PULSE 75; O2SAT 99
[2025-05-19] MEDS: cephALEXin 250 MG CAPSULE 500 MG PO (21:36)
[2025-05-19] MEDS: TAMSULOSIN 0.4 MG CAPSULE PO (21:37)
== END 2025-05-19 21:43 | disposition home or self-care (01) ==
PROVIDERS: Emergency Provider Student in an Organized Health Care Education/Training Program; PCP Family Medicine
DX: R30.0 Dysuria (principal); R35.0 Frequency of micturition; R39.11 Hesitancy of micturition
CPT/HCPCS: 81003; 99283

== ENCOUNTER 2025-09-04 20:27 | Emergency (ER) | payer MEDICARE, BC, SELFPAY ==
[2025-09-04 20:34] VITALS: BP 187/90; PULSE 75; RESP 16; TEMP 36.8; O2SAT 98; BMI 24.1
--- NOTE | 2025-09-04 20:53 | EKG_ITS ---
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
--- NOTE | 2025-09-04 20:53 | DI.RAD.S_ITS ---
PROCEDURE: XR CHEST 1V INDICATIONS: Possible stroke TECHNIQUE: One view of the chest was acquired. COMPARISON: [facility], , XR CHEST 2V, 02/24/2019, 12:05. [facility], , CHEST 2 VIEW, 03/31/2017, 15:28. FINDINGS: Surgical changes and devices: None. Lungs and pleura: Lungs are clear. No pleural effusions or pneumothorax. Mediastinum: Mediastinal contours appear normal. Aortic replacement valve. Heart size is normal. Bones and chest wall: No suspicious bony lesions. Overlying soft tissues appear unremarkable. IMPRESSION: No acute cardiopulmonary abnormality is seen. Dictated by: Ubaldo Spence M.D. on 09/04/2025 at 22:47 Approved by: Ubaldo Spence M.D. on 09/04/2025 at 22:47
--- NOTE | 2025-09-04 20:53 | DI.CT.S_ITS ---
PROCEDURE: CT HEAD/BRAIN WO CON INDICATIONS: increased head pressure with visual disturbances TECHNIQUE: Noncontrast 4.5 mm thick angled axial sections acquired from the foramen magnum to the vertex, with coronal and sagittal reformats. For radiation dose reduction, the following was used: automated exposure control, adjustment of mA and/or kV according to patient size. COMPARISON: None. FINDINGS: Image quality: Diagnostic. CSF spaces: Basal cisterns are patent. No extra-axial fluid collections. Ventricles are normal in size and shape. Brain: No midline shift. No intracranial mass effect or hemorrhage. Raymundo- white matter interface is normal. Skull and face: Calvarium and visualized facial bones are intact, without suspicious lesions. Sinuses: Visualized sinuses and mastoids are clear. IMPRESSION: No acute intracranial pathology. Dictated by: Ubaldo Spence M.D. on 09/04/2025 at 23:18 Approved by: Ubaldo Spence M.D. on 09/04/2025 at 23:19
--- NOTE | 2025-09-04 20:54 | DI.CT.S_ITS ---
PROCEDURE: CT ANGIO HEAD AND NECK INDICATIONS: head pressure with unsteady gait TECHNIQUE: After the administration of intravenous contrast, 1 mm thick sections acquired from the aortic arch through the [place] of [place]. 3-dimensional [id number] (MIP) and/or volume rendering reformats were acquired of the central intracranial vasculature and neck separately. For radiation dose reduction, the following was used: automated exposure control, adjustment of mA and/or kV according to patient size. COMPARISON: None. FINDINGS: Image quality: Diagnostic. Cerebral CT Angiogram: Internal carotid arteries: No acute findings. Intracranial ICA are patent with no significant stenosis. No occlusion. No aneurysm. Anterior cerebral arteries: Unremarkable. No significant stenosis. No occlusion. No aneurysm. Middle cerebral arteries: Unremarkable. No significant stenosis. No occlusion. No aneurysm. Posterior cerebral arteries: Unremarkable. No significant stenosis. No occlusion. No aneurysm. Basilar artery: Unremarkable. No significant stenosis. No occlusion. No aneurysm. Vertebral arteries: Unremarkable as visualized. Dural venous sinuses: Unremarkable given phase of enhancement. Other: Arterial phase appearance of the brain parenchyma is unremarkable. Neck CT Angiogram: Internal carotid arteries: Unremarkable. No significant stenosis. No dissection or occlusion. Common carotid arteries: Unremarkable. No significant stenosis. No dissection or occlusion. External carotid arteries: Unremarkable. No occlusion. Vertebral arteries: Unremarkable. No significant stenosis. No dissection or occlusion. Aortic Arch and Mediastinum: Partially visualized aortic arch unremarkable without evidence of aneurysm. Origins of the great vessels unremarkable. Other: Mucosal thickening of the left maxillary sinus floor. Arterial phase soft tissues of the neck and chest are unremarkable. IMPRESSION: No significant intracranial arterial abnormality is seen. No significant abnormality is seen within the arteries of the neck. Any quantitative measurements of stenosis were performed using NASCET criteria. Dictated by: Ubaldo Spence M.D. on 09/04/2025 at 23:20 Approved by: Ubaldo Spence M.D. on 09/04/2025 at 23:21
[2025-09-04 22:01] LABS: Add Manual Diff / Slide Review NO; Hematocrit 44.5 % (41-53); Hemoglobin 15.5 g/dL (13.5-17.5); Lymphocytes Absolute Auto 1700 /uL (1100-4500); Mean Corpuscular HGB Conc 34.8 % (30-36); Mean Corpuscular Hemoglobin 33.6 PG (26-34); Mean Corpuscular Volume 96.7 fL (80-100); Platelet Count 159 X10^3/uL (150-400)
[2025-09-04 22:04] LABS: INR 1.0 (0.9-1.3); Prothrombin Time 10.8 SECONDS (9.4-12.5)
[2025-09-04 22:07] LABS: PTT Partial Thromboplastin Tim 31 SECONDS (25.1-36.5)
[2025-09-04 22:08] LABS: Alanine Aminotransferase 29 IU/L (<50); Albumin 4.4 g/dL (3.5-5.0); Albumin Globulin Ratio 1.8 (1.0-2.8); Alkaline Phosphatase 70 U/L (38-126); Blood Urea Nitrogen 21 mg/dL (9-20); Calcium 9.1 mg/dL (8.4-10.2); Carbon Dioxide 23 mmol/L (22-32); Chloride 105 mmol/L (98-107); Creatine Kinase 161 U/L (55-170); Estimated Glomerular Filt Rate > 60 mL/min (>60); Globulin 2.5 g/dL (1.7-4.1); Glucose 132 mg/dL (70-99); HEMOLYSIS 19 (0-50); Potassium 4.1 mmol/L (3.4-5.1); Sodium 137 mmol/L (137-145); Total Protein 6.9 g/dL (6.3-8.2)
[2025-09-04 22:19] LABS: Troponin I 0.026 ng/mL (0.01-0.034)
[2025-09-05] VITALS (8 sets, daily range): BP systolic 127–147; BP diastolic 72–80; PULSE 54–63; O2SAT 94–97
--- NOTE | 2025-09-05 01:16 | ED_ITS ---
HPI - Neuro Symptoms/Deficit General Chief Complaint: Neuro Symptoms/Deficit Stated Complaint: head pressure, visual disturbance Time Seen by Provider: 09/05/25 00:38 Source: patient Mode of arrival: Ambulatory History of Present Illness HPI Narrative: 69-year-old male with history of TAVR October 2024, after which he had TIA symptoms with left eye partial loss of vision symptoms, reported negative workup, was on Plavix for a number of months postprocedure, currently taking baby aspirin daily. No history of migraine headaches. Complains of more than one-week duration of intermittent left headache like pressure sensation that is worse in the last 3 days, with some aura and visual disturbance on the left. But no curtain closing like symptoms that he had during TIA episodes last year. Intermittently over the last week or so he has felt less steady in his gait. No falls. No focal weakness to face arm or leg. No focal numbness to face arm or leg. No trouble with speech or swallowing. Denies recent illness symptoms, cough, fevers, shortness of breath, chest discomfort. He feels better now without specific treatment. On Anticoagulants: No Related Data Home Medications ?Medication ?Instructions ?Recorded ?Confirmed MULTIVITAMIN (One Daily 1 tab PO QDAY ##0 04/30/12 0 05/05/25 Multivitamin) amoxicillin 500 mg capsule 1,000 mg PO BID PRN dental work 10/25/24 05/05/25 aspirin 81 mg tablet,delayed 81 mg PO DAILY 10/25/24 0 05/05/25 release (Adult Aspirin Regimen) atorvastatin 10 mg tablet 10 mg PO DAILY 10/25/2404/24 Allergies Allergy/AdvReac Type Severity Reaction Status Date / Time No Known Drug Allergies Allergy Verified 05/19/25 19:48 Review of Systems Hematologic/Lymphatic On Anticoagulants: No Patient History Medical History PFO (patent foramen ovale) TIA (transient ischemic attack) Severe aortic stenosis Encounter for subsequent annual wellness visit (AWV) in Medicare patient Heart murmur Congenital cavus foot Hammertoe Renal cancer Insomnia (10/08/11) Surgical History S/P TAVR (transcatheter aortic valve replacement) Social History household members: spouse Smoking Status: Never smoker Smoking Status: Never smoker alcohol intake frequency: a few times a month Exam Narrative Exam Narrative: GENERAL: Well-developed patient, calm, cooperative. HEAD: Atraumatic. Normocephalic. EYES: Pupils equal round and reactive. Extraocular motions intact. No scleral icterus. No injection or drainage. ENT: no facial droop or ptosis, no obvious carniofacial trauma. NECK: Trachea midline. Moves neck well. CARDIOVASCULAR: Regular rate and rhythm without murmurs, gallops, or rubs. RESPIRATORY: Clear to auscultation. Breath sounds equal bilaterally. No wheezes, rales, or rhonchi. GASTROINTESTINAL: Abdomen soft, non-tender, nondistended. EXTREMITIES: No edema or joint tenderness. BACK: Nontender without deformity or crepitance. No flank tenderness. NEURO: AOx3. Cooperative, no distress. Cranial nerves 2-12 intact. Motor functions 5/5 bilateral upper extremity and lower extremity. Dhwakc-vs-nbqv, rapid alternating movements, and eleq-sz-vpwt testing normal bilaterally and symmetrical. Sensation intact to light touch face arms legs. Steady gait reported on walking to the bathroom in the department. SKIN: No rash or erythema of visible areas Initial Vital Signs Initial Vital Signs: Vital Signs Temperature 98.3 F 09/04/25 20:34 Pulse Rate 75 09/04/25 20:34 Respiratory Rate 16 09/04/25 20:34 Blood Pressure 187/90 H 09/04/25 20:34 Pulse Oximetry 98 09/04/25 20:34 Oxygen Delivery Method Room Air 09/04/25 20:34 Course Orders Ordered: ED Orders 09/04/25 20:45 Complete Blood Count AUTO DIFF Stat Comprehensive Metabolic Panel Stat PTT Partial Thromboplastin Harjeet Stat Prothrombin Time INR Stat Troponin & CK Cardiac Panel Stat 09/04/25 20:53 CT head/brain wo con Stat XR chest 1V Stat Urine Drug Screen, Rapid Stat EKG-12 Lead Stat 09/04/25 20:54 CT angio head and neck Stat 09/05/25 01:39 Troponin I Stat Vital Signs Vital signs: Vital Signs - 8 hr 09/04/25 20:34 Temperature 98.3 F Pulse Rate 75 Respiratory Rate 16 Blood Pressure 187/90 H Pulse Oximetry 98 Oxygen Delivery Method Room Air MDM - Neuro Symptoms/Deficit Lab Data Attestation: I reviewed the patient's lab results. Lab results narrative: White blood cell count 4900, hemoglobin 15.5, platelets normal. Glucose 132. Renal function, serum carbon dioxide, electrolytes unremarkable. Liver functions normal. Troponin measurable but low. 09/04/25 20:45 09/04/25 20:45 Labs: Lab Results 09/04/25 09/05/25 Range/Units 20:45 02:10 WBC 4.9 (4.5-11.0) X10^3/uL RBC 4.60 (4.5-5.9) X10^6/uL Hgb 15.5 (13.5-17.5) g/dL Hct 44.5 (41-53) % MCV 96.7 (80-100) fL MCH 33.6 (26-34) PG MCHC 34.8 (30-36) % RDW 12.6 (11.6-14.8) % Plt Count 159 (150-400) X10^3/uL Neut % (Auto) 51.1 (50-75) % Lymph % (Auto) 34.9 (25-40) % Sherman % (Auto) 9.6 (3-14) % Eos % (Auto) 4.1 H (2-4) % Baso % (Auto) 0.3 (0-2) % Neut # (Auto) 2500 (4363-8606) /uL Lymph # (Auto) 1700 (0354-7140) /uL Sherman # (Auto) 500 (0-900) /uL Eos # (Auto) 200 (0-450) /uL Baso # (Auto) 0 (0-100) /uL PT 10.8 (9.4-12.5) SECONDS INR 1.0 (0.9-1.3) APTT 31 (25.1-36.5) SECONDS Sodium 137 (137-145) mmol/L Potassium 4.1 (3.4-5.1) mmol/L Chloride 105 (98-107) mmol/L Carbon Dioxide 23 (22-32) mmol/L BUN 21 H (9-20) mg/dL Creatinine 1.14 (0.66-1.25) mg/dL Estimated GFR > 60 (>60) mL/min BUN/Creatinine Ratio 18.4 (6-22) Glucose 132 H (70-99) mg/dL Calcium 9.1 (8.4-10.2) mg/dL Total Bilirubin 0.5 (0.2-1.3) mg/dL AST 37 (17-59) IU/L ALT 29 (<50) IU/L Alkaline Phosphatase 70 (38-126) U/L Total Creatine Kinase 161 (55-170) U/L Troponin I 0.026 0.029 (0.01-0.034) ng/mL Total Protein 6.9 (6.3-8.2) g/dL Albumin 4.4 (3.5-5.0) g/dL Globulin 2.5 (1.7-4.1) g/dL Albumin/Globulin Ratio 1.8 (1.0-2.8) Imaging Data Chest x-ray: Radiologist's Impression: [address] [address] XRay Report Signed Patient: Sergo Larsen MR#: [id number] : 1955 Acct:[id number] Age/Sex: 69 / M Date of Service: 09/04/25 Loc: ED Accession Number: [id number] Procedure: XR chest 1V Ordering Provider: Herman Dawson MD PROCEDURE: XR CHEST 1V INDICATIONS: Possible stroke TECHNIQUE: One view of the chest was acquired. COMPARISON: [facility], XR CHEST 2V, 02/24/2019, 12:05. [facility], CHEST 2 VIEW, 03/31/2017, 15:28. FINDINGS: Surgical changes and devices: None. Lungs and pleura: Lungs are clear. No pleural effusions or pneumothorax. Mediastinum: Mediastinal contours appear normal. Aortic replacement valve. Heart size is normal. Bones and chest wall: No suspicious bony lesions. Overlying soft tissues appear unremarkable. IMPRESSION: No acute cardiopulmonary abnormality is seen. Dictated by: Ubaldo Spence M.D. on 09/04/2025 at 22:47 Approved by: Ubaldo Spence M.D. on 09/04/2025 at 22:47 CT scan - head: Radiologist's Impression: [address] [address] [address] Scan Report Signed Patient: Sergo Larsen MR#: [id number] : 1955 Acct:[id number] Age/Sex: 69 / M Date of Service: 09/04/25 Loc: ED Accession Number: [id number] Procedure: CT head/brain wo con Ordering Provider: Herman Dawson MD PROCEDURE: CT HEAD/BRAIN WO CON INDICATIONS: increased head pressure with visual disturbances TECHNIQUE: Noncontrast 4.5 mm thick angled axial sections acquired from the foramen magnum to the vertex, with coronal and sagittal reformats. For radiation dose reduction, the following was used: automated exposure control, adjustment of mA and/or kV according to patient size. COMPARISON: None. FINDINGS: Image quality: Diagnostic. CSF spaces: Basal cisterns are patent. No extra-axial fluid collections. Ventricles are normal in size and shape. Brain: No midline shift. No intracranial mass effect or hemorrhage. Raymundo- white matter interface is normal. Skull and face: Calvarium and visualized facial bones are intact, without suspicious lesions. Sinuses: Visualized sinuses and mastoids are clear. IMPRESSION: No acute intracranial pathology. Dictated by: Ubaldo Spence M.D. on 09/04/2025 at 23:18 Approved by: Ubaldo Spence M.D. on 09/04/2025 at 23:19 CTA - brain/neck: Radiologist's Impression: [place] [address] CT Scan Report Signed Patient: Sergo Larsen MR#: [id number] : 1955 Acct:[id number] Age/Sex: 69 / M Date of Service: 09/04/25 Loc: ED Accession Number: [id number] Procedure: CT angio head and neck Ordering Provider: Herman Dawson MD PROCEDURE: CT ANGIO HEAD AND NECK INDICATIONS: head pressure with unsteady gait TECHNIQUE: After the administration of intravenous contrast, 1 mm thick sections acquired from the aortic arch through the [place] of Jerry. 3-dimensional toflynw-ctgvcyeto-sbtzpkcqrx (MIP) and/or volume rendering reformats were acquired of the central intracranial vasculature and neck separately. For radiation dose reduction, the following was used: automated exposure control, adjustment of mA and/or kV according to patient size. COMPARISON: None. FINDINGS: Image quality: Diagnostic. Cerebral CT Angiogram: Internal carotid arteries: No acute findings. Intracranial ICA are patent with no significant stenosis. No occlusion. No aneurysm. Anterior cerebral arteries: Unremarkable. No significant stenosis. No occlusion. No aneurysm. Middle cerebral arteries: Unremarkable. No significant stenosis. No occlusion. No aneurysm. Posterior cerebral arteries: Unremarkable. No significant stenosis. No occlusion. No aneurysm. Basilar artery: Unremarkable. No significant stenosis. No occlusion. No aneurysm. Vertebral arteries: Unremarkable as visualized. Dural venous sinuses: Unremarkable given phase of enhancement. Other: Arterial phase appearance of the brain parenchyma is unremarkable. Neck CT Angiogram: Internal carotid arteries: Unremarkable. No significant stenosis. No dissection or occlusion. Common carotid arteries: Unremarkable. No significant stenosis. No dissection or occlusion. External carotid arteries: Unremarkable. No occlusion. Vertebral arteries: Unremarkable. No significant stenosis. No dissection or occlusion. Aortic Arch and Mediastinum: Partially visualized aortic arch unremarkable without evidence of aneurysm. Origins of the great vessels unremarkable. Other: Mucosal thickening of the left maxillary sinus floor. Arterial phase soft tissues of the neck and chest are unremarkable. IMPRESSION: No significant intracranial arterial abnormality is seen. No significant abnormality is seen within the arteries of the neck. Any quantitative measurements of stenosis were performed using NASCET criteria. Dictated by: Ubaldo Spence M.D. on 09/04/2025 at 23:20 Approved by: Ubaldo Spence M.D. on 09/04/2025 at 23:21 ECG Data Attestation: I personally reviewed and interpreted this ECG as follows: Interpretation: 0020, sinus bradycardia first-degree AV block. Ventricular rate 57. No obvious ST segment elevation or depression changes. AR 250, QRS 108, QTC 416. [facility] Narrative Medical decision making narrative: 69-year-old male with history of previous TIA after TAVR procedure last October 2024, no longer on Plavix, taking baby aspirin, recent one-week duration of intermittent left headache pressure, some intermittent blurriness to the left eye, no loss of vision in the left eye, some intermittent unsteadiness to gait. Symptoms improved without specific treatment. No nausea or vomiting. No injury or trauma. No focal neuro findings present on exam. CT head, CT angiogram head and neck vessels ordered after triage. EKG sinus rhythm, no obvious ischemic changes. CXR no acute changes, see radiology report. Lab data: White blood cell count 4900, hemoglobin 15.5, platelets normal. Glucose 132. Renal function, serum carbon dioxide, electrolytes unremarkable. Liver functions normal. Troponin measurable but low. CT Head no acute changes. See radiology report. CTA Head/Neck no narrowing or thromboses. See radiology report. Interval troponin also measurable but quite low. Doubt ACS at this time clinically. Pt/ agree. Discussed further TIA workup that might include monitoring, MRI Brain not available overnight now here, Echo not available overnight now here. Admission declilned. He prefers further workup as an outpatient for now. DC home with who agrees with his dispo decision. Consider taking full strength aspirin pending further workup. Return precautions discussed. DC home per patient request. Discharge Plan Departure Patient Disposition: Home Clinical Impression: Transient vision disturbance of left eye, Left-sided headache, History of TIA (transient ischemic attack) Instructions: DI for Transient Ischemic Attack Activity Restrictions/Additional Instructions: History of prior transient ischemic attack (TIA) after TAVR procedure last year October 2024, previously on Plavix with aspirin, recent months on baby aspirin daily only anticoagulation. Today with left-sided head discomfort and some visual blurring to the left side, no history of migraine headaches. CT head noncontrast no acute changes. CT angiogram of head and neck vessels showed no narrowing or thrombosis changes. EKG and blood work reassuring. Could consider atypical migraine headache. Could consider TIA, though you did not seem to have loss of vision but just blurred vision, still could represent transient ischemic attack. Consider admission for further workup that might include MRI brain and echocardiogram of the heart, declined for now. You prefer for now to pursue further workup as an outpatient. Contact your doctor tomorrow during regular hours to coordinate expedited close follow up. Further workup as an outpatient for now. Consider increased dose of aspirin from baby aspirin to full strength 325 mg aspirin until further evaluated as above. Return earlier to this/nearest emergency department for any change worsening symptoms or any concerns prior. Prescriptions: No Action MULTIVITAMIN (One Daily Multivitamin) 1 tab PO QDAY Qty: 0 atorvastatin 10 mg tablet 10 mg PO DAILY aspirin [Adult Aspirin Regimen] 81 mg tablet,delayed release (DR/EC) 81 mg PO DAILY amoxicillin 500 mg capsule 1,000 mg PO BID PRN (Reason: dental work) Referrals: Miracle Argueta DO [Primary Care Provider, Family Practice] Stand Alone Forms: Patient Portal/API
[2025-09-05 02:57] LABS: Troponin I 0.029 ng/mL (0.01-0.034)
== END 2025-09-05 04:08 | disposition home or self-care (01) ==
PROVIDERS: Emergency Provider Emergency Medicine; PCP Family Medicine
DX: H53.9 Unspecified visual disturbance (principal); R51.9 Headache, unspecified; Z86.73 Personal history of transient ischemic attack (TIA), and cerebral infarction without residual deficits
CPT/HCPCS: 36415; 70450; 70496; 70498; 71045; 80053; 82550; 84484; 85025; 85610; 85730; 93005; 99283; 99284; Q9967

== ENCOUNTER → 2025-09-07 09:07 | Outpatient (CLI) | payer MEDICARE, BC, SELFPAY ==
--- NOTE | 2025-09-07 09:10 | DI.ECHO.S_ITS ---
[facility] : : [address] [place] : : [id number] : : Phone: [phone] Echocardiogram Report + + :Name: IVANIA COHEN Study Date: 09/07/2025 Height: 75 in : :[facility] ReadingLocation: Weight: 195 lb : : Gender: Male BSA: 2.2 m2 : :: 1955 Age: 69 yrs BP: 133/89 mmHg: :Reason For Study: S/P TAVR : :Ordering Physician: BROCK, : :DIONICIO Performed By: Indra Helms : :Referring: DIONICIO FRAZIER : + + Interpretation Summary 1) Normal left ventricular thickness, size, wall motion, and systolic function (EF 60-65%). 2) Normal right ventricular size and function. 3) Bioprosthetic aortic valve present that is well seated and opens well (mean gradient 12mmHg). Mild paravalvular regurgitation. 4) No prior Echo available for comparison. Procedure: A two-dimensional transthoracic echocardiogram with color flow and Doppler was performed. The study quality was technically good. Comparison is made with the echocardiogram of 11/17/2024. The patient was in normal sinus rhythm during the exam. Left Ventricle: The left ventricle is normal in size. There is normal left ventricular wall thickness. There is no ventricular septal defect visualized. The ejection fraction is estimated to be 60-65%. There are no focal wall motion abnormalities. Diastolic parameters suggest a relaxation abnormality of the left ventricle, consistent with probable normal filling pressures. Right Ventricle: The right ventricle is normal in size and function. Atria: The left atrium is moderately dilated. Right atrial size is normal. A prominent eustachian valve is noted. There is no Doppler evidence for an interatrial shunt. Mitral Valve: The mitral valve leaflets appear mildly thickened. There is trace mitral regurgitation. Aortic Valve: There is a bioprosthetic aortic valve. The peak aortic velocity is 2.37 m/sec. The aortic valve mean gradient is 11.7 mmHg. Mild paravalvular regurgitation. Tricuspid Valve: The tricuspid valve is normal in structure and function. There is trace tricuspid regurgitation. The right ventricular systolic pressure is estimated to be at least 26 mmHg based on an estimated right atrial pressure of 8 mm Hg. Pulmonic Valve: The pulmonic valve is not well seen, but is grossly normal. There is trace pulmonic regurgitation. Great Vessels: The aortic root is normal size. The ascending aorta is at the upper limits of normal in size. The pulmonary artery is not well visualized, but is probably normal size. The IVC is dilated (diameter is greater than 2.1 cm) yet it collapses greater than 50% with a sniff. This suggests a right atrial pressure of 8 mm Hg. Pericardium/ Pleura There is no pericardial effusion. There is no pleural effusion. MMode/2D Measurements & Calculations LVIDd: 5.3 cm LVOT diam: 2.0 cm LVIDs: 3.1 cm Ao root diam: 3.3 cm FS: 40.8 % EPSS: 1.0 cm IVSd: 0.95 cm LVPWd: 0.90 cm LV sy. diameter/BSA (cm/m^2): 2.4 LV sys. diameter/BSA (cm/m^2): 1.4 LA A2 area: 23.6 cm2 RA long axis: 4.2 cm LA A4 area: 23.8 cm2 RA area: 15.7 cm2 LA length (vol): 6.0 cm RA vol: 49.6 ml LA vol: 79.3 ml RA : 22.8 ml/m2 LA vol index: 36.5 ml/m2 IVC diam: 2.4 cm RVD1 (basal): 3.1 cm RVD2 (mid): 2.7 cm TAPSE: 2.1 cm Doppler Measurements & Calculations Ao V2 max: 237.4 cm/sec LVOT Max [place]: 117.6 cm/sec Ao V2 mean: 163.1 cm/sec LV V1 max P.5 mmHg Ao max P.5 mmHg LV V1 VTI: 24.9 cm Ao mean P.7 mmHg MILAGRO(I,D): 1.6 cm2 Ao V2 VTI: 48.4 cm MILAGRO(V,D): 1.6 cm2 sev ratio: 0.51 MILAGRO indexed to BSA (cm^2/m^2): 0.74 MV E max [place]: 61.8 cm/sec TR max [place]: 214.1 cm/sec MV A max [place]: 87.2 cm/sec TR max P.3 mmHg MV E/A: 0.71 PA V2 max: 90.8 cm/sec Med Peak E' [place]: 5.3 cm/sec PA V2 mean: 66.4 cm/sec E/E' med: 11.6 PA mean P.9 mmHg Lat Peak E' [place]: 9.7 cm/sec PA pr(Accel): 43.0 mmHg E/E' lat: 6.4 E/e' average: 9.0 MV dec time: 0.32 sec SV(LVOT): 78.2 ml Reading Physician:01:53 PM
[2025-09-07 11:25] LABS: Prostate Specific Antigen 1.38 ng/mL (0.10-4.00)
== END ==
LOC: ECHO 09:08
PROVIDERS: PCP Family Medicine; Referring Provider Internal Medicine Cardiovascular Disease; Visit Provider Internal Medicine Cardiovascular Disease
DX: I35.1 Nonrheumatic aortic (valve) insufficiency (principal); Z95.2 Presence of prosthetic heart valve; Z12.5 Encounter for screening for malignant neoplasm of prostate
CPT/HCPCS: 36415; 84153; 93306; G0103

== ENCOUNTER → 2025-09-12 07:46 | Outpatient (CLI) | payer MEDICARE, BC, SELFPAY ==
--- NOTE | 2025-09-12 07:47 | DI.MRI.S_ITS ---
PROCEDURE: MR HEAD/BRAIN WO/W CON INDICATIONS: TIA, head pressure, unsteadiness TECHNIQUE: Noncontrast axial T1 spin echo, axial T2 fast spin echo, sagittal and axial FLAIR, coronal T2 fast spin echo, axial gradient echo, axial diffusion and ADC through the brain. After the administration of contrast, axial and coronal and sagittal T1 spin echo with fat saturation through the brain. COMPARISON: [facility], CT, CT ANGIO HEAD AND NECK, 09/04/2025, 22:40. [facility], CT, CT HEAD/BRAIN WO CON, 09/04/2025, 22:27. [facility], MR, MR ORBITS FACE NECK WO CON, 02/13/2025, 15:45. [facility], MR, MR HEAD/BRAIN WO CON, 02/13/2025, 15:25. [facility], CT, CT ANGIO HEAD AND NECK, 10/15/2024, 14:05. [facility], CT, CT HEAD WITHOUT CONTRAST, 10/15/2024, 14:05. FINDINGS: Image quality: Excellent. CSF spaces: Basal cisterns are patent. No extra-axial fluid collections. Ventricles are normal in size and shape. Brain: No midline shift. No intracranial bleeds or masses. No abnormal intracranial enhancement. There is cerebral volume loss for age. There is periventricular white matter chronic small vessel ischemic change. The brainstem appears normal. Diffusion-weighted images demonstrate no acute infarct. No chronic ischemic insults. Normal intravascular flow voids are present. Skull and face: Calvarial marrow is normal in signal. Orbits appear normal. Sinuses: Sinuses demonstrate mucous retention cyst versus mucocele in the ethmoid and maxillary sinuses on the right.. IMPRESSION: 1. No acute intracranial process. 2. Mild atrophy and chronic microvascular ischemic changes. Dictated by: Joyce Lunsford M.D. on 09/12/2025 at 15:01 Approved by: Joyce Lunsford M.D. on 09/12/2025 at 15:03
== END ==
LOC: MRI 07:46
PROVIDERS: PCP Family Medicine; Referring Provider Family Medicine; Visit Provider Family Medicine
DX: R51.9 Headache, unspecified (principal); H53.9 Unspecified visual disturbance
CPT/HCPCS: 70553; A9579

== ENCOUNTER → 2025-09-21 09:43 | Outpatient (CLI) | payer MEDICARE, BC, SELFPAY | LOC: CAR 09:44 | PROVIDERS: PCP Family Medicine; Referring Provider Family Medicine; Visit Provider Family Medicine | DX: H53.9 Unspecified visual disturbance (principal); R51.9 Headache, unspecified | CPT/HCPCS: 93242 ==

== ENCOUNTER 2025-10-08 09:36 | Emergency (ER) | payer MEDICARE, BC, SELFPAY ==
[2025-10-08] VITALS (9 sets, daily range): BP systolic 124–143; BP diastolic 76–85; PULSE 58–75; RESP 14–23; TEMP 36.6; O2SAT 94–98; BMI 24.5
--- NOTE | 2025-10-08 09:49 | ED_ITS ---
HPI - Chest Pain
--- NOTE | 2025-10-08 09:49 | ED.CHESTPAIN ---
HPI - Chest Pain General Chief Complaint: Chest Pain Stated Complaint: Lightheadness, discomfort in chest; t-3 Time Seen by Provider: 10/08/25 09:49 Source: patient Mode of arrival: Ambulatory Limitations: no limitations History of Present Illness HPI narrative: 70-year-old gentleman history of TAVR in October 2024 after which he had a TIA with left eye partial loss of vision symptoms for which he now currently takes a baby aspirin presents today with multiple complaints headache, dizziness, lightheadedness, fatigue, weakness, has fullness intermittently going on for the last month progressively getting worse. Patient seen by PCP recently with neurology referral pending has upcoming appointment with disability coordinator in 2 weeks. Other than what is stated 14 point review of system is negative. Related Data Home Medications ?Medication ?Instructions ?Recorded ?Confirmed MULTIVITAMIN (One Daily 1 tab PO QDAY ##0 04/30/12 09/07/25 Multivitamin) amoxicillin 500 mg capsule 1,000 mg PO BID PRN dental work 10/25/24 09/07/25 aspirin 81 mg tablet,delayed 81 mg PO DAILY 10/25/24 09/07/25 release (Adult Aspirin Regimen) atorvastatin 10 mg tablet 10 mg PO DAILY 10/25/24 09/07/25 tamsulosin 0.4 mg capsule 0.4 mg PO DAILY To improve 09/07/25 09/07/25 urination Allergies Allergy/AdvReac Type Severity Reaction Status Date / Time No Known Drug Allergies Allergy Verified 10/08/25 09:44 Review of Systems Review of Systems ROS Unobtainable: All systems reviewed & are unremarkable except as noted in HPI and below Patient History Medical History PFO (patent foramen ovale) TIA (transient ischemic attack) Severe aortic stenosis Encounter for subsequent annual wellness visit (AWV) in Medicare patient Heart murmur Congenital cavus foot [place] Renal cancer Insomnia (10/08/11) Surgical History S/P TAVR (transcatheter aortic valve replacement) Social History household members: spouse Smoking Status: Unknown if ever smoked Smoking Status: Unknown if ever smoked alcohol intake frequency: a few times a month Exam Narrative Exam Narrative: GENERAL: [70] year old patient appears stated age. Well-developed patient, in mild distress. HEAD: Atraumatic. Normocephalic. EYES: Pupils equal round and reactive. Extraocular motions intact. No scleral icterus. No injection or drainage. ENT: Nose without bleeding, purulent drainage. Throat without erythema, tonsillar hypertrophy or exudate. Airway patent. NECK: Trachea midline. Non tender CARDIOVASCULAR: Regular rate and rhythm without murmurs, gallops, or rubs. RESPIRATORY: Clear to auscultation. Breath sounds equal bilaterally. No wheezes, rales, or rhonchi. GASTROINTESTINAL: Abdomen soft, non-tender, nondistended. EXTREMITIES: No edema or joint tenderness. BACK: Nontender without deformity or crepitance. No flank tenderness. NEURO: AOx3. SKIN: No rash or erythema of visible areas Initial Vital Signs Initial Vital Signs: Vital Signs Temperature 97.8 F 10/08/25 09:38 Pulse Rate 69 10/08/25 09:38 Respiratory Rate 22 10/08/25 09:38 Blood Pressure 143/81 H 10/08/25 09:38 Pulse Oximetry 97 10/08/25 09:38 Oxygen Delivery Method Room Air 10/08/25 09:38 Scores HEART Score Heart Score history: Slightly Suspicious Heart Score EKG: Normal Heart Score Age: > or = 65 years old Heart Score risk factors: 1-2 risk factors Heart Score troponin: < or = to normal limit Heart Score Total: 3 Course Orders Ordered: ED Orders 10/08/25 09:52 CT head/brain wo con Stat XR chest 1V Stat EKG-12 Lead Stat 10/08/25 10:03 Complete Blood Count AUTO DIFF Stat Comprehensive Metabolic Panel Stat Lipase Stat Magnesium Stat NT-proBNP (BNP-Adult 18+) Stat Troponin I Stat 10/08/25 12:17 Troponin I Stat Vital Signs Vital signs: Vital Signs - 8 hr 10/08/25 09:38 10/08/25 09:42 10/08/25 09:42 Temperature 97.8 F Pulse Rate 69 75 Respiratory Rate 22 Blood Pressure 143/81 H 143/81 H Pulse Oximetry 97 97 Oxygen Delivery Method Room Air 10/08/25 10:00 10/08/25 10:22 10/08/25 10:22 Temperature Pulse Rate 65 62 Respiratory Rate 16 15 Blood Pressure 134/76 Pulse Oximetry 94 98 Oxygen Delivery Method 10/08/25 10:30 10/08/25 10:30 10/08/25 11:00 Temperature Pulse Rate 64 60 Respiratory Rate 15 17 Blood Pressure 131/80 Pulse Oximetry 96 96 Oxygen Delivery Method 10/08/25 11:00 Temperature Pulse Rate Respiratory Rate Blood Pressure 125/78 Pulse Oximetry Oxygen Delivery Method MDM - Chest Pain Lab Data 10/08/25 10:03 10/08/25 10:03 Labs: Lab Results 10/08/25 10/08/25 Range/Units 10:03 12:17 WBC 3.8 L (4.5-11.0) X10^3/uL RBC 4.34 L (4.5-5.9) X10^6/uL Hgb 14.8 (13.5-17.5) g/dL Hct 42.1 (41-53) % MCV 96.9 (80-100) fL MCH 34.0 (26-34) PG MCHC 35.1 (30-36) % RDW 12.6 (11.6-14.8) % Plt Count 145 L (150-400) X10^3/uL Neut % (Auto) 54.5 (50-75) % Lymph % (Auto) 28.3 (25-40) % [place] % (Auto) 11.9 (3-14) % Eos % (Auto) 4.8 H (2-4) % Baso % (Auto) 0.5 (0-2) % Neut # (Auto) 2000 (3385-1204) /uL Lymph # (Auto) 1100 (0143-0695) /uL [place] # (Auto) 400 (0-900) /uL Eos # (Auto) 200 (0-450) /uL Baso # (Auto) 0 (0-100) /uL Sodium 136 L (137-145) mmol/L Potassium 4.2 (3.4-5.1) mmol/L Chloride 105 (98-107) mmol/L Carbon Dioxide 25 (22-32) mmol/L BUN 15 (9-20) mg/dL Creatinine 0.78 (0.66-1.25) mg/dL Estimated GFR > 60 (>60) mL/min BUN/Creatinine Ratio 19.2 (6-22) Glucose 105 H (70-99) mg/dL Calcium 8.5 (8.4-10.2) mg/dL Magnesium 1.7 (1.6-2.3) mg/dL Total Bilirubin 0.8 (0.2-1.3) mg/dL AST 37 (17-59) IU/L ALT 28 (<50) IU/L Alkaline Phosphatase 64 (38-126) U/L Troponin I < 0.012 < 0.012 (0.01-0.034) ng/mL NT-Pro-B Natriuret Pep 102 (<125) pg/mL Total Protein 6.4 (6.3-8.2) g/dL Albumin 4.1 (3.5-5.0) g/dL Globulin 2.3 (1.7-4.1) g/dL Albumin/Globulin Ratio 1.8 (1.0-2.8) Lipase 46 (23-300) U/L Urine Dip Bedside Urine Glucose Negative Bedside Urine Bilirubin - Negative Bedside Urine Ketone - Negative Urine Specific [place] 1.010 Bedside Urine Occult Blood - Negative Bedside Urine pH 6.0 Bedside Urine Protein - Negative Bedside Urine Urobilinogen - Negative Bedside Urine Nitrite - Negative Bedside Urine Leukocytes - Negative Esterase Imaging Data CT scan - head: Radiologist's Impression: [place] [address] CT Scan Report Signed Patient: Sergo Larsen MR#: [id number] : 1955 Acct:[id number] Age/Sex: 70 / M Date of Service: 10/08/25 Loc: ED Accession Number: [id number] Procedure: CT head/brain wo con Ordering Provider: Fam Lopez D.O. PROCEDURE: CT HEAD/BRAIN WO CON INDICATIONS: None given, history of renal cell carcinoma TECHNIQUE: Noncontrast 4.5 mm thick angled axial sections acquired from the foramen magnum to the vertex, with coronal and sagittal reformats. For radiation dose reduction, the following was used: automated exposure control, adjustment of mA and/or kV according to patient size. COMPARISON: [facility], CT, CT HEAD/BRAIN WO CON, 09/04/2025, 22:27. FINDINGS: Image quality: Diagnostic. CSF spaces: Basal cisterns are patent. No extra-axial fluid collections. Ventricles are normal in size and shape. Brain: No midline shift. No intracranial mass effect or hemorrhage. [place]-white matter interface is normal. Skull and face: Calvarium and visualized facial bones are intact, without suspicious lesions. Sinuses: Visualized sinuses and mastoids are clear. IMPRESSION: No acute intracranial pathology. Dictated by: Marlene Kwan M.D. on 10/08/2025 at 9:43 Approved by: Marlene Kwan M.D. on 10/08/2025 at 9:46 Chest x-ray: Radiologist's Impression: [address] [id number] XRay Report Signed Patient: Sergo Larsen MR#: [id number] : 1955 Acct:[id number] Age/Sex: 70 / M Date of Service: 10/08/25 Loc: ED Accession Number: [id number] Procedure: XR chest 1V Ordering Provider: Fam Lopez D.O. PROCEDURE: XR CHEST 1V INDICATIONS: headache TECHNIQUE: One view of the chest was acquired. COMPARISON: [facility], CR, XR CHEST 1V, 09/04/2025, 22:16. [facility], , XR CHEST 2V, 02/24/2019, 12:05. FINDINGS: Surgical changes and devices: None. Lungs and pleura: Lungs are clear. No pleural effusions or pneumothorax. Mediastinum: Mediastinal contours appear normal. Heart size is normal. Bones and chest wall: No suspicious bony lesions. Overlying soft tissues appear unremarkable. IMPRESSION: No acute cardiopulmonary abnormality is seen. ECG Data Interpretation: NSR HR 68 CO 200 QRS [address]-t wave change No previous EKG to compare MDM Narrative Medical decision making narrative: All lab work, vital signs, nurse triage note, medication list, previous ER visits, and all imaging studies reviewed. Brain MRI from 09/12/2025 showed no acute intracranial process mild atrophy and chronic microvascular ischemic changes. Echo done on 09/07/2025 showed normal left ventricular thickness size wall motion and systolic function EF 60 65% normal right ventricular size and function follow up prosthetic aortic valve that is well seated in opens well mild paravalvular regurgitation. CT head 09/04/2025 showed no acute intracranial pathology. 09/04/25 CTA head and neck showed no significant intracranial arterial abnormality seen. No significant abnormality seen within the arteries of the neck. WBC 3.8 hemoglobin 14.8 platelets 145 sodium 136 potassium 4.2 chloride 105 to 25 BUN 15 creatinine 0.78 glucose 105 magnesium 1.7 LFTs normal 1st set troponin less than 0.012 BNP 102 lipase 46. Second set troponin less than 0.012. Heart score of 3. Patient will follow up with Neurology appointment as previously scheduled and cardiology. Discharge Plan Departure Patient Disposition: Home Clinical Impression: Headache, Chest pain Instructions: DI for Chest Pain Activity Restrictions/Additional Instructions: Return with new or worsening symptoms. Please follow up with Neurology appointment and cardiology appointment. Prescriptions: No Action MULTIVITAMIN (One Daily Multivitamin) 1 tab PO QDAY Qty: 0 tamsulosin 0.4 mg capsule 0.4 mg PO DAILY atorvastatin 10 mg tablet 10 mg PO DAILY aspirin [Adult Aspirin Regimen] 81 mg tablet,delayed release (DR/EC) 81 mg PO DAILY amoxicillin 500 mg capsule 1,000 mg PO BID PRN (Reason: dental work) Referrals: Miracle Argueta DO [Primary Care Provider, Family Practice] Stand Alone Forms: Patient Portal/API
--- NOTE | 2025-10-08 09:52 | DI.CT.S_ITS ---
PROCEDURE: CT HEAD/BRAIN WO CON
--- NOTE | 2025-10-08 09:52 | EKG_ITS ---
[facility]
--- NOTE | 2025-10-08 09:52 | DI.RAD.S_ITS ---
PROCEDURE: XR CHEST 1V
[2025-10-08 10:11] LABS: Add Manual Diff / Slide Review NO; Hematocrit 42.1 % (41-53); Hemoglobin 14.8 g/dL (13.5-17.5); Lymphocytes Absolute Auto 1100 /uL (1100-4500); Mean Corpuscular HGB Conc 35.1 % (30-36); Mean Corpuscular Hemoglobin 34.0 PG (26-34); Mean Corpuscular Volume 96.9 fL (80-100); Platelet Count 145 X10^3/uL (150-400)
[2025-10-08 10:24] LABS: Alanine Aminotransferase 28 IU/L (<50); Albumin 4.1 g/dL (3.5-5.0); Albumin Globulin Ratio 1.8 (1.0-2.8); Alkaline Phosphatase 64 U/L (38-126); Blood Urea Nitrogen 15 mg/dL (9-20); Calcium 8.5 mg/dL (8.4-10.2); Carbon Dioxide 25 mmol/L (22-32); Chloride 105 mmol/L (98-107); Estimated Glomerular Filt Rate > 60 mL/min (>60); Globulin 2.3 g/dL (1.7-4.1); Glucose 105 mg/dL (70-99); HEMOLYSIS < 15 (0-50); Lipase 46 U/L (23-300); Magnesium 1.7 mg/dL (1.6-2.3); Potassium 4.2 mmol/L (3.4-5.1); Sodium 136 mmol/L (137-145); Total Protein 6.4 g/dL (6.3-8.2)
[2025-10-08 10:36] LABS: NT-proBNP (BNP-Adult 18+) 102 pg/mL (<125); Troponin I < 0.012 ng/mL (0.01-0.034)
[2025-10-08 12:47] LABS: Troponin I < 0.012 ng/mL (0.01-0.034)
== END 2025-10-08 12:59 | disposition home or self-care (01) ==
PROVIDERS: Emergency Provider Family Medicine; PCP Family Medicine
DX: R51.9 Headache, unspecified (principal); R07.9 Chest pain, unspecified; Z95.2 Presence of prosthetic heart valve; Z86.73 Personal history of transient ischemic attack (TIA), and cerebral infarction without residual deficits
CPT/HCPCS: 36415; 70450; 71045; 80053; 81003; 83690; 83735; 83880; 84484; 85025; 93005; 99282; 99284

== ENCOUNTER → 2025-10-17 10:17 | Outpatient (CLI) | payer MEDICARE, BC, SELFPAY ==
[2025-10-17 11:43] LABS: Hematocrit 43.9 % (41-53); Hemoglobin 15.2 g/dL (13.5-17.5); Mean Corpuscular HGB Conc 34.5 % (30-36); Mean Corpuscular Hemoglobin 33.5 PG (26-34); Mean Corpuscular Volume 97.1 fL (80-100); Platelet Count 158 X10^3/uL (150-400)
[2025-10-17 12:20] LABS: Blood Urea Nitrogen 14 mg/dL (9-20); Calcium 8.7 mg/dL (8.4-10.2); Carbon Dioxide 26 mmol/L (22-32); Chloride 103 mmol/L (98-107); Cholesterol 138 mg/dL (140-199); Estimated Glomerular Filt Rate > 60 mL/min (>60); Glucose 90 mg/dL (70-99); HDL Cholesterol 56 mg/dL (40-60); HEMOLYSIS < 15 (0-50); Potassium 4.5 mmol/L (3.4-5.1); Sodium 137 mmol/L (137-145); Triglycerides 67 mg/dL (35-150)
== END ==
PROVIDERS: PCP Family Medicine; Referring Provider Internal Medicine Cardiovascular Disease; Visit Provider Internal Medicine Cardiovascular Disease
DX: I25.10 Atherosclerotic heart disease of native coronary artery without angina pectoris (principal)
CPT/HCPCS: 36415; 80048; 80061; 85027